=== PATIENT | female | born 1960 | race Caucasian/White ===

== ENCOUNTER 2019-04-25 01:32 | Inpatient (IN) | payer OTHER ==
[~2019-04-25] VITALS: Ht 157.5 cm; Wt 59.9 kg
[2019-04-25] VITALS (12 sets, daily range): BP systolic 103–167; BP diastolic 45–82
--- NOTE | 2019-04-25 01:32 | NUR ---
Patient BIBA ACLS, transferred to bed 11. RN evaluating patient at bedside.
--- NOTE | 2019-04-25 01:45 | NUR ---
58 YO F BIBA FROM HOME. FAMILY CALLED 911 DUE TO PT BEHAVING ABNORMALLY. PER EMS, PT WAS INITALLY C/O HIGH BLOOD SUGAR AND GRADUALLY BECAME MORE ALTERED. PT ARRIVES A/O X 0. UNRESPONSIVE TO QUESTIONS. PT USING FOUL LANGUAGE WITH SLURRED SPEECH. PT SAYING NON-SENSICAL THINGS, MOANING. PT IS UNCOOPERATIVE, THRASHING, KICKING ON GURNEY. PT TRANSFERED TO GURNEY AND BECAME MORE CALM. LARGE DISTENDED ABD NOTED. -- SKIN PINK, WARM, DRY. BREATHING EVEN, UNLABORED. VSS. PMH-- HEP C, ASCITES, DM, CIRHOSSIS
--- NOTE | 2019-04-25 01:50 | NUR ---
# 16 FR straight catheter utilizing sterile technique. Immediate return of 300 ml orange, clear urine noted. Urine sample collected and sent to lab. Pt tolerated procedure well.
--- NOTE | 2019-04-25 02:00 | NUR ---
BOYFRIEND ARRIVED AT BEDSIDE. HE STATES THAT PT LAST NORMAL BEHAVIOR WAS WHEN THEY HAD DINNER AROUND 9 PM. HE STATES PT "TOOK HITS FROM HER NIECE'S [employer] PIPE" AND WENT TO BED. SHE WOKE UP AROUND 2400 C/O THAT HER BLOOD SUGAR WAS HIGH. HE STATES THAT SHE WAS TRYING TO TAKE HER BLOOD SUGAR AND HE NOTICED THAT SHE "WASN'T ACTING RIGHT." HE STATES THAT SHE GRADUALLY BECAME MORE AND MORE ALTERED; RESTLESS, AGITATED, ANXIOUS. HE ALSO REPORTS THAT SHE HAD A PARACENTESIS ON FRIDAY.
--- NOTE | 2019-04-25 02:10 | NUR ---
IV CAME OUT DURING BLOOD DRAW DUE TO PT STRUGGLING AND MOVING.
--- NOTE | 2019-04-25 02:15 | NUR ---
PHLEB DRAWING LABS AT BEDSIDE.
--- NOTE | 2019-04-25 02:19 | NUR ---
EMT PERFORMING EKG AT BEDSIDE.
[2019-04-25 02:33] LABS: APPEARANCE,URINE CLEAR (CLEAR); BILIRUBIN,URINE NEGATIVE (NEGATIVE); BLOOD, URINE NEGATIVE (NEGATIVE); COLOR,URINE YELLOW (YELLOW); LEUKOCYTE ESTERASE ,URINE NEGATIVE (NEGATIVE); NITRITE, URINE NEGATIVE (NEGATIVE); UGLUCOSE 1+ (NEGATIVE)
[2019-04-25 02:33] LABS: HEMATOCRIT 33.1 % (36-48); HEMOGLOBIN 11.4 g/dL (12.0-16.0); MEAN CORPUSCULAR HEMOGLOBIN 35 pg (27-31); MEAN CORPUSCULAR HGB CONC 35 g/dL (33-37); MEAN CORPUSCULAR VOLUME 100.7 fL (80-94); PLATELET COUNT (AUTO) 117 K/uL (140-450); RED BLOOD CELL COUNT(AUTO) 3.29 MIL/uL (4.20-5.40); RED CELL DISTRIBUTION WIDTH 15.2 % (11.6-13.7); WHITE BLOOD COUNT (AUTO) 7.9 K/uL (4.8-10.8)
[2019-04-25 02:43] LABS: LYMPHOCYTES % (MANUAL) 7 % (20-46); MONOCYTES % (MANUAL) 11 % (5-12)
[2019-04-25 02:47] LABS: ANION GAP 23.7 (8-16); CARBON DIOXIDE 16.3 mmol/L (21-32)
[2019-04-25 02:48] LABS: HYALINE CASTS, URINE 0-10 /LPF (None Seen); RBC,URINE 0-5 /HPF (0-5); WBC,URINE 0-5 /HPF (0-5)
[2019-04-25 02:57] LABS: ALBUMIN 2.5 g/dL (3.4-5.0); TOTAL BILIRUBIN 2.8 mg/dL (0.0-1.0)
[2019-04-25] MEDS ORDERED: NACL 0.9% 2,000 ML IV ONE (03:10)
--- NOTE | 2019-04-25 03:50 | NUR ---
Dr. Ortega evaluating patient at bedside.
[2019-04-25] MEDS ORDERED: LORazepam 2 MG/ML VIAL IVP PRN (04:05)
[2019-04-25] MEDS ORDERED: cefTRIAXone 1,000 MG VIAL ONE (04:17)
[2019-04-25] MEDS ORDERED: SODIUM BICARBONATE 8.4% 100 MEQ in DEXT 5% / NACL 0.45% 1,000 ML IV SCH (04:20)
--- NOTE | 2019-04-25 04:45 | NUR ---
Patient will be admitted to care of Dr. Rodriguez. Admited to TELE. Will go to room 110B. Belongings list completed. Report to EKATERINA Queen.
--- NOTE | 2019-04-25 04:45 | NUR ---
RECEIVED BEDSIDE REPORT. PT IS AAOX0. NON RESPONSIVE TO VOICE. PER RN PTS BOYFRIEND STATES PT BECAME ALOC AT 0000. AND WAS OKAY AT 2200. PT VERY LETHARGIC AROUND 0000 AND WAS ADMITTED TO ER IN [place] BUT SOON AFTER PT ASLEEP. SKIN IS INTACT. IV ON L FA 20G CURRENTLY ROCEPHIN INFUSING. PT STILL TO HAVE 2L OF NS BOLUS. WILL ADMINISTER AFTER ROCEPHIN. VS: 111/45 94 97%RA 14 97.7 FLACC 0.MRSA SWAB OBTAINED. SAFETY MEASURES ARE IN PLACE.
[2019-04-25] MEDS ORDERED: FURO-570 PO (04:54)
[2019-04-25] MEDS ORDERED: PANT40EC28 PO ×2 (04:54→05:11)
[2019-04-25] MEDS ORDERED: INSU100S45 SUBQ (04:54)
[2019-04-25] MEDS ORDERED: MIC5 PO (04:54)
[2019-04-25] MEDS ORDERED: SPIR50TA PO (04:54)
--- NOTE | 2019-04-25 05:00 | NUR ---
ELLIOTT CATH INSERTED AT THIS TIME USING STERILE TECHNIQUE. YELLOW URINE RETURN NOTED. ALL SAFETY MEASURES ARE IN PLACE.
[2019-04-25] MEDS ORDERED: METO5TAB4 PO (05:11)
[2019-04-25] MEDS ORDERED: SODIUM BICARBONATE 8.4% PFS 50 MEQ/50 ML SYR IVP ONE (05:44)
[2019-04-25] MEDS ORDERED: LACTULOSE 20 GM/30 ML UDC PO SCH (06:00)
--- NOTE | 2019-04-25 06:10 | NUR ---
NG TUBE INSERTED 16 FR USED. PT TOLERATED WELL. CXR STAT ORDERED. NG TUBE INSERTED FOR MEDICATIONS. PT REMAINS AAO X0.
--- NOTE | 2019-04-25 07:25 | NUR ---
ENDORSED PT IN STABLE CONDITION.
--- NOTE | 2019-04-25 07:26 | NUR ---
RECEIVED REPORT FROM AQUARIUM SPECIALIST NURSE. PATIENT LYING DOWN IN BED, MOANING WITH OCCASIONAL TOSSING AROUND IN BED. DIFFICULT TO AROUSE, OPEN EYES OCCASIONALLY HOWEVER EYES LOOK ROLLED BACK, PUPILS PERRLA ON BOTH EYES. NGTUBE IN PLACE, SKIN INTACT. ELLIOTT CATH IN PLACE DRAINING YELLOW URINE WITH SEDIMENT NOTED. IV SITE INTACT, PATENT, AND INFUSING IVF PER MD ORDERS. SAFETY MEASURES IN PLACE, CALL LIGHT WITHIN REACH. WILL CONTINUE TO MONITOR.
--- NOTE | 2019-04-25 07:40 | NUR ---
PAGED DR. MARQUIS REGARDING INCREASED LACTIC ACID. AWAITING CALL BACK. WILL CONTINUE TO MONITOR.
--- NOTE | 2019-04-25 08:00 | NUR ---
DR. MARQUSI RETURNED CALL AND SAID THAT HE WAS IN [facility] ICU AND WILL COME TO UNIT SOON AND LOOK AT PATIENT. NO FURTHER ORDERS AT THIS TIME. WILL CONTINUE TO MONITOR.
[2019-04-25] MEDS ORDERED: DEXTROSE 50% 50 ML SYR IVP PRN (08:15)
--- NOTE | 2019-04-25 08:15 | NUR ---
DR. MARQUIS AT BEDSIDE ASSESSING PATIENT. PER DR. MARQUIS, PATIENT DOES NOT LOOK WELL AND WILL TRANSFER TO ICU. INFANTRY INDIRECT FIRE CREWMEMBER AND ACADEMIC TUTOR NOTIFIED AND AWARE. WILL CONTINUE TO MONITOR.
[2019-04-25] MEDS: BLOOD GLUCOSE MONITORING 1 DEV DEV FS SCH ×4 (08:22→23:25)
--- NOTE | 2019-04-25 09:09 | NUR ---
PATIENT HAS BEEN SCREENED AND CATEGORIZED HIGH NUTRITION RISK. PATIENT WILL BE SEEN WITHIN 1-2 DAYS OF ADMISSION. 04/26/19-04/27/[address]
--- NOTE | 2019-04-25 09:13 | NUR ---
ABG RESULTS READ BACK TO DR. MARQUIS AND PT IS BEING TRANSFERRED TO [facility] CARLOS ALBERTO GIVEN RESULTS ALSO
[2019-04-25] MEDS: LACTULOSE 20 GM/30 ML UDC PO SCH ×4 (09:26→23:26)
--- NOTE | 2019-04-25 09:27 | NUR ---
PT MOANING, RESTLESS, ATIVAN GIVEN
[2019-04-25] MEDS ORDERED: RIFAXIMIN 550 MG TAB NG SCH (09:30)
--- NOTE | 2019-04-25 09:50 | NUR ---
PATIENT TRANSFERRED TO ICU SAFELY. REPORT GIVEN TO ICU NURSE FOR CONTINUITY OF CARE.
--- NOTE | 2019-04-25 09:50 | NUR ---
TRANSFERRED PT FROM [facility] TO ICU BED 3. PT DOES NOT OPEN EYES, NO RESPONSIVE TO VOICE STIMULI. BEDSIDE MONITOR SHOWS SR 98. ON RA, NO S/S OF RESPIRATORY DISTRESS NOTED. LUNG SOUND CLEAR. PT ABD LARGE AND EXTENDED BUT SOFT TO TOUCH. PT HAS IV TO LEFT FA # 22 AND RIGHT AC # 20 RUNNING D5 1/2 NS WITH SODIUM BICARBONATE 80% AT 100 CC/HR. PT ALSO HAS MITTEN ON BOTH HANDS. F/C IN PLACE WITH ORANGE URINE NOTED. SIDE RAIL UP WITH LOW BED POSITION. HOB ELEVATED 30 DEGREE, WILL CONTINUE TO MONITOR.
--- NOTE | 2019-04-25 10:18 | NUR ---
NG TUBE PLACEMENT CHECKED WITH ANOTHER NURSE RATJANY. IN THE RIGHT PLACE.
--- NOTE | 2019-04-25 11:00 | NUR ---
PT MOANING AND FALL ASLEEP AGAIN.
[2019-04-25] MEDS: INSULIN LISPRO SLIDING SCALE 100 UNITS/ML VIAL SUBQ PRN ×4 (11:48→23:30)
--- NOTE | 2019-04-25 11:55 | NUR ---
GI DOCTOR CALLED IN, UPDATED PT'S LAB WORK AND NO BM. PER DR. SPEARS, ORDER ONE BOTTLE OF MAGNESIUM CITRATE ONE BOTTLE, HE WILL COME OVER TO CHECK PT LATER.
[2019-04-25] MEDS ORDERED: MAGNESIUM CITRATE 300 ML BTL PO SCH (12:00)
--- NOTE | 2019-04-25 14:36 | NUR ---
PT TOOK TO CT ACCOMPANIED WITH TERRI AND RN AT 1415, CAME BACK TO ROOM WITHOUT INCIDENT.
[2019-04-25 15:07] LABS: BARBITURATE, URINE NEG. ng/ml (NEG <=200); BENZODIAZEPINE, URINE NEG. ng/mL (NEG <=200); CANNABINOID, URINE POS. ng/mL (NEG <=50); COCAINE, URINE NEG. ng/mL (NEG <=300); OPIATE, URINE NEG. ng/mL (NEG <=2000); PHENCYCLIDINE SCREEN,URINE NEG. ng/mL (NEG <=25)
--- NOTE | 2019-04-25 15:29 | NUR ---
PT'S SON, SISTER AND BOYFRIEND AT BEDSIDE. PT STILL DOES NOT OPEN EYES. O2 SATS 99% ON RA. ABD STILL LARGE AND SOFT. NO BM YET.
[2019-04-25] MEDS: DEXT 5% /NACL 0.9% 1,000 ML IV SCH (15:39)
--- NOTE | 2019-04-25 16:22 | NUR ---
CALLED DR. MARQUIS REGARDING HOME MEDS RECON. DR. MARQUIS STATED HE WOULD HOLD ALL THE HOME MEDS BUT GIVE PROTONIX 40 MG IV DAILY AND BS CHECK Q4HRS.
[2019-04-25] MEDS: METOCLOPRAMIDE 10 MG/10 ML SYRP UDC GT SCH (16:47)
--- NOTE | 2019-04-25 17:05 | NUR ---
APPLIED SCD TO PT. DR. MARQUIS MADE AWARE PT'S HEART RATE INCREASED FROM 98 TO 105S AND LAB REPORT.
--- NOTE | 2019-04-25 17:19 | NUR ---
CHARGE NURSE CALLED GI DR. SANDHU REGARDING CT ABD/PELVIS REPORT. DR. SANDHU GAVE TUBE FEEDING ORDER TO CHARGE NURSE.
--- NOTE | 2019-04-25 17:30 | NUR ---
TURNED AND REPOSITIONED PT. PT TOLERATED WELL. O2 SATS 98% ON RA. MUMBLING AND DOES NOT OPEN EYES. FAMILY AT BEDSIDE.
--- NOTE | 2019-04-25 18:15 | NUR ---
STARTED TUBE FEEDING AT 10 CC/HR.
--- NOTE | 2019-04-25 19:15 | NUR ---
RECEIVED REPORT FROM AM SHIFT. PT ALTERED UNABLE TO VERBALIZE NEEDS. NO SIGNS OF ACUTE DISTRESS AT THIS TIME. AFEBRILE. MITTENS BILAT. ROOM AIR. EVEN UNLABORED BREATHING. LUNG SOUNDS CTA BILAT. SR-ST ON MONITOR. NO EDEMA NOTED. ABD DISTENDED. BOWEL SOUNDS HYPOACTIVE. NGT TO NARES. ON GLUCERNA 10 ML WITH 30 ML Q 4 H WATER FLUSH. F/C IN PLACE. URINE CLEAR NO SEDIMENT. BED IN LOWEST POSITION. CALL LIGHT WITHIN REACH. WILL CONTINUE TO MONITOR.
[2019-04-25 19:21] LABS: PROTHROMBIN TIME 13.2 secs (10.8-13.4)
[2019-04-25 19:22] LABS: ANION GAP 19.1 (8-16); CARBON DIOXIDE 20.1 mmol/L (21-32); CREATININE 1.6 mg/dL (0.6-1.3); POTASSIUM 3.2 mmol/L (3.5-5.1)
--- NOTE | 2019-04-25 19:45 | NUR ---
MD AT BEDSIDE AT THIS TIME. UPDATED ON PTS CURRENT CONDITION. WILL CONTINUE TO FOLLOW UP ANY ADDITIONAL ORDERS
[2019-04-25] MEDS: RIFAXIMIN 550 MG TAB NG SCH (20:28)
--- NOTE | 2019-04-25 21:24 | NUR ---
K 3.[address] MARQUIS. NEW ORDERS ADMINISTER 40 MEQ KCL AT THIS TIME.
[2019-04-25] MEDS ORDERED: KCL 20 MEQ/WATER INJ PREMIX 200 ML IV ONE ×2 (21:25)
[2019-04-25] MEDS ORDERED: KCL 20 MEQ/WATER INJ PREMIX 200 ML IV SCH (21:45)
--- NOTE | 2019-04-25 22:25 | NUR ---
NO SIGNS OF ACUTE DISTRESS AT THIS TIME. WILL CONTINUE TO MONITOR.
[2019-04-26] VITALS (7 sets, daily range): BP systolic 94–133; BP diastolic 51–83
--- NOTE | 2019-04-26 | NUR ---
WENT TO CHECK ON PT TO GIVE REQUESTED SLEEPING PILL, BUT PT WAS ALREADY SLEEPING. Addendum: 04/27/19 at 0147 by Meka Tirado RN DATE 04/27/19 AT 0000 NOT 04/26/19
--- NOTE | 2019-04-26 01:11 | NUR ---
NO SIGNS OF ACUTE DISTRESS AT THIS TIME.
[2019-04-26] MEDS: DEXT 5% /NACL 0.9% 1,000 ML IV SCH ×2 (01:33→12:01)
--- NOTE | 2019-04-26 02:30 | NUR ---
LARGE WATERING BM AT THIS TIME. PT ON LACTULOSE Q4H. WILL CONTINUE TO MONITOR.
--- NOTE | 2019-04-26 04:00 | NUR ---
LAB AT BEDSIDE AT THIS TIME. WILL CONTINUE TO MONITOR.
[2019-04-26] MEDS: BLOOD GLUCOSE MONITORING 1 DEV DEV FS SCH ×6 (04:35→23:47)
[2019-04-26] MEDS: LACTULOSE 20 GM/30 ML UDC PO SCH ×6 (04:36→23:48)
[2019-04-26] MEDS: INSULIN LISPRO SLIDING SCALE 100 UNITS/ML VIAL SUBQ PRN ×3 (05:16→21:19)
--- NOTE | 2019-04-26 05:40 | NUR ---
PT HAD LARGE WATERY BM AT THIS TIME. PT TURNED AND REPOSITIONED. BED IN LOWEST POSITION. WILL CONTINUE TO MONITOR.
[2019-04-26 06:00] LABS: BASOPHILS % (AUTO) 0.2 % (0.0-2.0); EOSINOPHILS # (AUTO) 0.1 K/uL (0-0.4); EOSINOPHILS % (AUTO) 2.4 % (0.0-4.0); HEMATOCRIT 33.1 % (36-48); HEMOGLOBIN 11.2 g/dL (12.0-16.0); LYMPHOCYTES # (AUTO) 0.9 K/uL (2.5-16.5); LYMPHOCYTES % (AUTO) 15.6 % (20.5-51.1); MEAN CORPUSCULAR HEMOGLOBIN 34 pg (27-31); MEAN CORPUSCULAR HGB CONC 34 g/dL (33-37); MEAN CORPUSCULAR VOLUME 100.9 fL (80-94); MONOCYTES # (AUTO) 0.7 K/uL (0.8-1.0); MONOCYTES % (AUTO) 12.4 % (1.7-9.3); NEUTROPHILS # (AUTO) 4.1 K/uL (1.8-7.7); NEUTROPHILS % (AUTO) 69.4 % (42.2-75.2); PLATELET COUNT (AUTO) 80 K/uL (140-450); RED BLOOD CELL COUNT(AUTO) 3.28 MIL/uL (4.20-5.40); WHITE BLOOD COUNT (AUTO) 5.9 K/uL (4.8-10.8)
[2019-04-26 06:29] LABS: ALBUMIN 2.2 g/dL (3.4-5.0); ANION GAP 16.4 (8-16); CREATININE 1.4 mg/dL (0.6-1.3); MAGNESIUM 2.2 mg/dL (1.8-2.4); PHOSPHORUS 2.1 mg/dL (2.5-4.9); POTASSIUM 4.4 mmol/L (3.5-5.1); TOTAL BILIRUBIN 2.9 mg/dL (0.0-1.0)
--- NOTE | 2019-04-26 07:12 | NUR ---
ENDORSED CARE TO INCOMING SHIFT RN FOR CONTINUITY OF CARE.
--- NOTE | 2019-04-26 07:30 | NUR ---
RECEIVED PT FROM PM NURSE. PT IS MORE AWAKE THAN YESTERDAY BUT STILL UNABLE TO MAKE NEEDS KNOWN. WHEN ASSESSING PATIENT. NO MATTER WHAT QUESTIONS I ASKED, THE ANSWER WAS "Yes". bedside monitor shows sr-ST ( 98s-105S). on RA, no s/s of respiratory distress noted. ng tube in place with Glucerna at 30 CC PER HOUR WITH WATER FLUSH 300 Q 6 HRS. RESIDUAL CHECKED 10CC, RETURNED IT BACK. ABD LARGE AND DISTENDED. F/C IN PLACE WITH LIGHT ORANGE COLOR URINE NOTED. PT HAS IV TO RIGHT AC # 20 AND LEFT FA # 22 RUNNING D5NS AT 100 CC/HR, HOB ELEVATED 30 DEGREES WITH LOW BED POSITION, WILL CONTINUE TO MONITOR.
[2019-04-26] MEDS: METOCLOPRAMIDE 10 MG/10 ML SYRP UDC GT SCH ×3 (07:48→16:36)
--- NOTE | 2019-04-26 08:45 | NUR ---
PT HAD BM, CLEANED PT .
[2019-04-26] MEDS ORDERED: PANTOPRAZOLE 40 MG INJ VIAL IVP SCH (09:00)
--- NOTE | 2019-04-26 09:00 | NUR ---
DR. MARQUIS IN TO CHECK PT. PER DR. MARQUIS, IT IS OK TO TRANSFER TO TELE.
--- NOTE | 2019-04-26 09:30 | NUR ---
MADE AWARE PT ACCIDENTLY PULLED OUT NG TUBE. PER DR. MARQUIS, OK TO ORDER PT CCHO 60G.
[2019-04-26] MEDS: RIFAXIMIN 550 MG TAB NG SCH ×2 (09:43→21:00)
--- NOTE | 2019-04-26 10:30 | NUR ---
SCREEN FOR LOW OSBALDO SCALE AT RISK, CONTINUE TO FOLLOW PRESSURE ULCER PREVENTION INTERVENTIONS. -TURN AND REPOSITION PATIENT Q 2H -ASSESS AND MONITOR SKIN CONDITION DURING POSITION CHANGE -OFFLOAD BILATERAL HEELS BY PLACING PILLOWS UNDER CALVES AT ALL TIMES, UNLESS OTHERWISE CONTRAINDICATED -PRESSURE REDISTRIBUTION BY PLACING PILLOWS AND OFFLOADING SACRALCOCCYX -KEEP SKIN CLEAN AND DRY AT ALL TIMES.
--- NOTE | 2019-04-26 10:45 | NUR ---
PT HAD BM. CLEANED PT. BED CHANGED.
--- NOTE | 2019-04-26 11:10 | NUR ---
TRANSFERRED PT TO TELE 108B. REPORT GIVEN TO CARLOS ALBERTO TOBAR. PT TOLERATED WELL. ALL PERSONAL BELONGINGS WITH PT. PT'S SISTER WITH PT.
--- NOTE | 2019-04-26 11:52 | NUR ---
CONTACTED PATIENT'S PCP DR. JONA POTTER AT [phone]. PDA IS SET UP FOR APR 29, 2019 AT 1530 PM. COPY PROVIDED TO THE PATIENT.
--- NOTE | 2019-04-26 12:20 | NUR ---
SCHEDULED MEDICATIONS DUE GIVEN. WILL CONTINUE TO MONITOR.
[2019-04-26] MEDS ORDERED: ALBUMIN HUMAN 25% 100 ML IV SCH (14:00)
--- NOTE | 2019-04-26 16:42 | NUR ---
PATIENT LYING DOWN IN BED WATCHING TV. NO DISTRESS NOTED. DENIES ANY PAIN. SCHEDULED MEDICATIONS DUE GIVEN. WILL CONTINUE TO MONITOR.
--- NOTE | 2019-04-26 18:00 | NUR ---
PATIENT LYING DOWN IN BED TALKING WITH FAMILY MEMBERS AT BEDSIDE. NO DISTRESS NOTED. DENIES ANY PAIN. WILL CONTINUE TO MONITOR.
--- NOTE | 2019-04-26 19:07 | NUR ---
GAVE REPORT TO WOVEN LABEL DESIGNER NURSE FOR CONTINUITY OF CARE. PATIENT IN STABLE CONDITION.
--- NOTE | 2019-04-26 19:10 | NUR ---
RECEIVED REPORT FROM CARLOS ALBERTO GUSMAN AT BEDSIDE FOR CONTINUITY OF CARE, PT IN STABLE CONDITION.
--- NOTE | 2019-04-26 20:00 | NUR ---
PT IN BED AWAKE AND ALERT AND ORIENTED X 2-3. PT LUNGS CLEAR, BUT ABDOMEN IS DISTENDED AND FIRM. PT HAD 2 BMS RECENTLY DUE TO ADMINISTRATION OF LACTULOSE. SEQUENTIALS IN PLACE FOR DVT PREVENTION. PT HAS 2 IV SITES, LEFT F/A 20G INTACT AND FLUSHED PATENT AND A RAC 20GUAGE INTACT AND FLUSHED PATENT. PT HAS D5 1/2 NS RUNNING AT 5MLS HR TO KVO. V/S FOLLOWS T 97.9 P 104 R 18 B/P 126/51 02 96% ON ROOM AIR. ALL FALLS PRECAUTIONS IN PLACE AND AND AL REQUESTED NEEDS ATTENDED AND CALL FELDER IN REACH.
--- NOTE | 2019-04-26 21:00 | NUR ---
PT IN BED , SHE WAS TUNED AND CHANGED, PT HAD ANOTHER LOOSE BM.PT GIVEN DUE MEDS OF LACTULOSE AND RIFAXIMIN. PT BLOOD GLUCOSE IS 260, PT GIVEN 6 UNITS HUMALOG PER S/S. ALL REQUESTED NEEDS ATTENDED AND ALL FALLS PRECAUTIONS IN PLACE.
--- NOTE | 2019-04-26 22:45 | NUR ---
PT REQUESTED SLEEPING PILL FOR INSOMNIA., PAGED [facility] [employer], DR. HANNON RENAL SOCIAL WORKER.
--- NOTE | 2019-04-26 23:00 | NUR ---
PT C/O OF LEFT F/A IV SITE HURTS HER, REMOVED PER PT REQUEST, IV FLUIDS PLACE ON RAC IV SITE . PT RUNNING D51/2 NS AT 5MLS/HR TO KVO.
--- NOTE | 2019-04-26 23:30 | NUR ---
PT IN BED, SHE REFUSED HER ORDERED LACTULOSE , FINGERSTICK IS 107, NO HUMALOG COVERAGE NEEDED. V/S FOLLOWS T 98.4 P 101 R 18 B/P 117/66 02 100% ON ROOM AIR. ALL REQUESTED NEEDS ATTENDED AND CALL FELDER IN REACH.
--- NOTE | 2019-04-26 23:35 | NUR ---
NEW ORDER FOR RESTORIL 15MG PO/PRN AT HS FOR INSOMNIA RECEIVED BY DR. HANNON.
[2019-04-27] VITALS: BP 117/66
--- NOTE | 2019-04-27 | NUR ---
WENT TO GIVEN PT PRN RESTORIL FOR INSOMNIA , BUT PT WAS SLEEPING.
[2019-04-27] MEDS ORDERED: TEMAZEPAM 15 MG CAP PO PRN ×2 (00:15→12:45)
[2019-04-27 04:00] VITALS: BP 128/75
[2019-04-27] MEDS: BLOOD GLUCOSE MONITORING 1 DEV DEV FS SCH ×4 (04:00→16:00)
[2019-04-27] MEDS: LACTULOSE 20 GM/30 ML UDC PO SCH ×3 (04:00→12:04)
--- NOTE | 2019-04-27 04:00 | NUR ---
PT REFUSED LACTULOSE FINGERSTICK IS 134, NO COVERAGE NEEDED. PT IN BED AOX3 ALL FALLS PRECAUTIONS IN PLACE, NO C/O VOICED AT THIS TIME.
[2019-04-27] MEDS: METOCLOPRAMIDE 10 MG/10 ML SYRP UDC GT SCH ×2 (06:29→11:20)
--- NOTE | 2019-04-27 06:30 | NUR ---
FINGERSTICK IS 164, PT RECEIVED 2 UNITS OF HUMALOG COVERAGE.
[2019-04-27] MEDS: INSULIN LISPRO SLIDING SCALE 100 UNITS/ML VIAL SUBQ PRN ×3 (06:35→17:17)
--- NOTE | 2019-04-27 07:25 | NUR ---
RECEIVED BEDSIDE REPORT FROM SENIOR NETWORK SYSTEMS ENGINEER NURSE FOR CONTINUITY OF CARE. PATIENT AWAKE AND RESTING ON BED AT THIS TIME. PATIENT IS AAOX3, TO NAME, PLACE AND TIME. PATIENT IS ABLE TO FOLLOW SIMPLE COMMANDS AND MAKE NEEDS KNOWN. RESPIRATION EVEN AND UNLABORED ON RA. DENIED PAIN AND SOB. NO SIGNS OF DISTRESS NOTED. IV ON RAC 20G, CLEAN AND INTACT, SL. SKIN CLEAN AND INTACT, NO WOUND. PATIENT IS INCONTINENT, AND ELLIOTT IN PLACE AND DRAINING YELLOW URINE WITH GRAVITY. DISCUSSED PLAN OF CARE WITH PATIENT AND PATIENT SAID OK. SAFETY MEASURES IN PLACE. BED ALARM ACTIVATED. BED IN LOW POSITION AND CALL LIGHT WITHIN REACH. INSTRUCTED PATIENT TO USE THE CALL LIGHT FOR ANY ASSISTANCE AND PATIENT SAID OK.
[2019-04-27 07:34] LABS: ALBUMIN 2.6 g/dL (3.4-5.0); ANION GAP 12.9 (8-16); CARBON DIOXIDE 23.7 mmol/L (21-32); CREATININE 1.2 mg/dL (0.6-1.3); POTASSIUM 3.6 mmol/L (3.5-5.1); TOTAL BILIRUBIN 2.6 mg/dL (0.0-1.0)
--- NOTE | 2019-04-27 07:42 | NUR ---
PATIENT REQUESTED TO REMOVE THE COMPRESSION SOCKS FROM HER LEGS AND STATED "CAN YOU TAKE THEM OFF FOR NOW? I DON'T FEEL COMFORTABLE TO HAVE THEM ON." EDUCATED PATIENT ABOUT COMPRESSION SOCKS AND HOW IT WORKS. PATIENT STATED " YES, I KNOW, BUT I WANT TO TAKE THEM OFF NOW." REMOVED PER REQUEST. PATIENT AWAKE AND RESTING ONM BED AT THIS TIME. NO SIGNS OF DISTRESS NOTED. SAFETY MEASURES IN PLACE. BED ALARM ACTIVATED. BED IN LOW POSITION AND CALL LIGHT WITHIN REACH. INSTRUCTED PATIENT TO USE THE CALL LIGHT FOR ANY ASSISTANCE AND PATIENT WAS AWARE.
[2019-04-27 08:00] VITALS: BP 114/60
[2019-04-27] MEDS: RIFAXIMIN 550 MG TAB NG SCH (08:19)
--- NOTE | 2019-04-27 08:20 | NUR ---
ADMINISTERED MEDS PER MD ORDER, PATIENT TOLERATED WELL. MEDS EDUCATION PROVIDED TO PATIENT AND ANSWERED ALL PATIENT'S QUESTION, PATIENT VERBALIZED UNDERSTANDING. PATIENT AWAKE AND RESTING ON BED AT THIS TIME. NO SIGNS OF DISTRESS NOTED. TELE MONITOR ATTACHED. SAFETY MEASURES IN PLACE. BED IN LOW POSITION AND CALL LIGHT WITHIN REACH. INSTRUCTED PATIENT TO USE THE CALL LIGHT FOR ANY ASSISTANCE AND PATIENT SAID OK.
[2019-04-27 09:11] LABS: HEMOGLOBIN 9.1 g/dL (12.0-16.0); MEAN CORPUSCULAR HEMOGLOBIN 35 pg (27-31); MONOCYTES # (AUTO) 0.7 K/uL (0.8-1.0); RED BLOOD CELL COUNT(AUTO) 2.57 MIL/uL (4.20-5.40)
[2019-04-27 09:13] LABS: BASOPHILS % (AUTO) 0.7 % (0.0-2.0); EOSINOPHILS # (AUTO) 0.3 K/uL (0-0.4); EOSINOPHILS % (AUTO) 5.4 % (0.0-4.0); HEMATOCRIT 26.2 % (36-48); LYMPHOCYTES # (AUTO) 1.4 K/uL (2.5-16.5); LYMPHOCYTES % (AUTO) 25.6 % (20.5-51.1); MEAN CORPUSCULAR HGB CONC 35 g/dL (33-37); MEAN CORPUSCULAR VOLUME 101.7 fL (80-94); MONOCYTES % (AUTO) 13.7 % (1.7-9.3); NEUTROPHILS % (AUTO) 54.6 % (42.2-75.2); PLATELET COUNT (AUTO) 70 K/uL (140-450); RED CELL DISTRIBUTION WIDTH 15.8 % (11.6-13.7); WHITE BLOOD COUNT (AUTO) 5.5 K/uL (4.8-10.8)
--- NOTE | 2019-04-27 09:25 | NUR ---
PATIENT AWAKE AND TALKING TO BOYFRIEND CELINE BY BEDSIDE. NO SIGNS OF DISTRESS NOTED. TELE MONITOR ATTACHED. SAFETY MEASURES IN PLACE. BED IN LOW POSITION AND CALL LIGHT WITHIN REACH. BED ALARM ACTIVATED.
--- NOTE | 2019-04-27 10:10 | NUR ---
PATIENT IS PARTICIPATING IN PHYSICAL THERAPY SESSION AT THIS TIME WITH SREE FRANZ. NO SIGNS OF DISTRESS NOTED.
--- NOTE | 2019-04-27 11:20 | NUR ---
PATIENT COMPLAINED SHE FEELS NAUSEA AFTER PHYSICAL THERAPY, ADMINISTERED SCHEDULED MED REGLAN, MED EDUCATION PROVIDED TO PATIENT AND PATIENT VERBALIZED UNDERSTANDING. PATIENT AWAKE AND WATCHING TV ON BED AT THIS TIME. NO SIGN OF DISTRESS NOTED. SAFETY MEASURES IN PLACE. BED IN LOW POSITION AND CALL LIGHT WITHIN REACH. BED ALARM ACTIVATED. INSTRUCTED PATIENT TO USE THE CALL LIGHT FOR ANY ASSISTANCE AND PATIENT SAID OK.
[2019-04-27 12:00] VITALS: BP 128/55
--- NOTE | 2019-04-27 12:07 | NUR ---
ADMINISTERED MED PER MD ORDER, PATIENT TOLERATED WELL. MED EDUCATION PROVIDED TO PATIENT AND PATIENT VERBALIZED UNDERSTANDING. PATIENT IS AWAKE AND TALKING TO SISTER ANGELA AT BEDSIDE. NO SIGNS OF DISTRESS NOTED. SAFETY MEASURES IN PLACE. BED IN LOW POSITION AND CALL LIGHT WITHIN REACH. BED ALAR, ACTIVATED. INSTRUCTED PATIENT TO USE THE CALL LIGHT FOR ANY ASSISTANCE AND PATIENT WAS AWARE.
--- NOTE | 2019-04-27 13:21 | NUR ---
PATIENT AWAKE AND TALKING TO SISTER JENNIFER AND VISITORS AT BEDSIDE. NO SIGNS OF DISTRESS NOTED. SAFETY MEASURES IN PLACE. BED IN LOW POSITION AND CALL LIGHT WITHIN REACH. BED ALARM ACTIVATED. INSTRUCTED PATIENT TO USE THE CALL LIGHT FOR ANY ASSISTANCE AND PATIENT VERBALIZED OK.
--- NOTE | 2019-04-27 13:45 | NUR ---
DC ELLIOTT CATHETER PER MD ORDER, PATIENT TOLERATED WELL. NO SIGNS OF DISTRESS NOTED. PATIENT AWAKE AND TALKING TO SISTER JENNIFER AND VISITORS BY BEDSIDE. TELE MONITOR ATTACHED. SAFETY MEASURES IN PLACE. BED IN LOW POSITION AND CALL LIGHT WITHIN REACH. INSTRUCTED PATIENT TO USE THE CALL LIGHT FOR ANY ASSISTANCE AND PATIENT SAID OK.
--- NOTE | 2019-04-27 15:12 | NUR ---
PATIENT IS NAPPING ON BED AT THIS TIME. EVEN AND UNLABORED CHEST RISES IN RA NOTED. NO SIGNS OF DISTRESS NOTED. SAFETY MEASURES IN PLACE. BED IN LOW POSITION AND CALL LIGHT WITHIN REACH. BED ALARM ACTIVATED.
--- NOTE | 2019-04-27 15:50 | NUR ---
04/27/19 RD INITIAL ASSESSMENT COMPLETED PLEASE REFER TO NUTRITION ASSESSMENT UNDER CARE ACTIVITY FOR ESTIMATED NUTRITIONAL NEEDS. 1. CONTINUE CCHO 60 GM DIET TOLERATED 2. RECOMMEND GLUCERNA BID 3. SNACKS WILL BE PROVIDED 4. RD TO FOLLOW-UP 3-5 DAYS, MODERATE RISK CHRIS JIMENEZ, RD
[2019-04-27] MEDS ORDERED: LACT10SO1 PO (15:54)
[2019-04-27 16:00] VITALS: BP 108/61
--- NOTE | 2019-04-27 16:00 | NUR ---
INFORMED PATIENT THAT SHE WILL BE DISCHARGE FROM THE HOSPITAL TODAY. PER PATIENT, SHE WILL CALL HER FAMILY/BOYFRIEND TO FIND OUT WHEN THEY WILL BE ABLE TO PICK HER UP FROM THE HOSPITAL. NO SIGNS OF DISTRESS NOTED. SAFETY MEASURES IN PLACE. BED IN LOW POSITION AND CALL LIGHT WITHIN REACH.
--- NOTE | 2019-04-27 16:20 | NUR ---
PATIENT SAID "MY BOYFRIEND WILL BE ABLE TO PICK ME UP AFTER DINNER LIKE AROUND 6PM." INFORMED PATIENT THAT DISCHARGE DOCUMENT WILL BE PREPARED AND READY BY THAT TIME. PATIENT SAID "OK." PATIENT IS AWAKE AND RESTING ON BED AT THIS TIME. NO SIGNS OF DISTRESS NOTES. SAFETY MEASURES IN PLACE. BED IN LOW POSITION AND CALL LIGHT WITHIN REACH. INSTRUCTED PATIENT TO USE THE CALL LIGHT FOR ANY ASSISTANCE AND PATIENT WAS AWARE.
--- NOTE | 2019-04-27 16:48 | NUR ---
PAGED DR MARQUIS TO VERIFY PATIENT'S DISCHARGE DEPOSITION AND PROVIDED PATIENT'S PREFERRED PHARMACY FOR MEDICATION EQUIPMENT SALES SPECIALIST.
--- NOTE | 2019-04-27 16:52 | NUR ---
RECEIVED A CALL BACK FROM DR MARQUIS. PER DR MARQUIS, CORRECTED THE DISCHARGE DEPOSITION AND PROVIDED PATIENT'S PREFERRED PHARMACY INFORMATION TO DR MARQUIS [facility] [address] [place] [phone] MARQUIS, HE WILL PHONE IN THE PHARMACY FOR THE PRESCRIPTION.
[2019-04-27] MEDS ORDERED: LACTULOSE 20 GM/30 ML UDC PO SCH (17:00)
--- NOTE | 2019-04-27 17:17 | NUR ---
ADMINISTERED MEDS PER MD ORDER, PATIENT TOLERATED WELL. PATIENT AWAKE AND TALKING TO VISITOR ANDREW AT BEDSIDE. NO SIGNS OF DISTRESS NOTED. TELE MONITOR ATTACHED. SAFETY MEASURES IN PLACE. BED IN LOW POSITION AND CALL LIGHT WITHIN REACH. INSTRUCTED PATIENT TO USE THE CALL LIGHT FOR ANY ASSISTANCE AND PATIENT WAS AWARE.
--- NOTE | 2019-04-27 18:00 | NUR ---
PATIENT IS SITTING UP AND EATING DINNER ON BED AT THIS TIME. NO SIGNS OF DISTRESS NOTED. BOYFRIEND CELINE BY BEDSIDE. PER PATIENT, SHE WILL FINISH HER DINNER AND THEN CHANGE INTO HER OWN CLOTHES. SAFETY MEASURES IN PLACE. BED IN LOW POSITION AND CALL LIGHT WITHIN REACH. TELE MONITOR ATTACHED.
--- NOTE | 2019-04-27 18:20 | NUR ---
PATIENT IS STILL EATING DINNER AT THIS TIME. BOYFRIEND CELINE BY BEDSIDE. NO SIGNS OF DISTRESS NOTED. TELE MONITOR ATTACHED. SAFETY MEASURES IN PLACE. BED IN LOW POSITION AND CALL LIGHT WITHIN REACH.
--- NOTE | 2019-04-27 18:35 | NUR ---
PATIENT IS CHANGING INTO HER OWN CLOTHES AT THIS TIME. BOYFRIEND CELINE AT BEDSIDE. NO SIGNS OF DISTRESS NOTED. REMOVED TELE MONITOR AND RETURNED TO TELE INTERFACE DESIGNER.
--- NOTE | 2019-04-27 18:48 | NUR ---
DISCHARGE INSTRUCTION PROVIDED TO PATIENT AT BEDSIDE. EDUCATED PATIENT ON FOLLOW UP WITH MD, SEEK MEDICAL HELP IN CASE OF MEDICAL EMERGENCY, MEDICATIONS REGIMEN, SIDE EFFECTS, DISEASE MANAGEMENT, AND DIET. ANSWERED ALL PATIENT'S QUESTIONS AND PATIENT VERBALIZED UNDERSTANDING. REMOVED ALL ARM BANDS AND DC IV. IV CANNULA INTACT, NO BLEEDING AT IV SITE. PATIENT CHANGED INTO HER OWN CLOTHES. PATIENT CHECKED ALL THE CABINETS AND TOOK ALL HER BELONGINGS. RANGE FEEDER ESCORTED PATIENT TO THE FRONT LOBBY WITH WHEELCHAIR. PATIENT IS GOING TO DISCHARGE AT THIS TIME ACCOMPANIED BY BOYFRIENLatrell BERGER. AND PATIENT IS IN STABLE CONDITION.
== END 2019-04-27 18:48 | disposition home or self-care (01) | DRG 720 ==
LOC: MED 01:32 → MTU 04:17 → MIC 09:44 → MTU 04-26 11:10
PROVIDERS: ADMIT Internal Medicine; ATTEND Internal Medicine
DX: A41.9 Sepsis, unspecified organism (principal); N17.0 Acute kidney failure with tubular necrosis; E87.2 Acidosis; J18.9 Pneumonia, unspecified organism; K74.60 Unspecified cirrhosis of liver; K72.90 Hepatic failure, unspecified without coma; E44.0 Moderate protein-calorie malnutrition; E87.1 Hypo-osmolality and hyponatremia; K75.4 Autoimmune hepatitis; E11.9 Type 2 diabetes mellitus without complications; Z68.24 Body mass index [BMI] 24.0-24.9, adult; E86.1 Hypovolemia; E86.0 Dehydration
CPT/HCPCS: 36415; 36600; 71045; 76770; 80048; 80053; 80305; 81001; 82140; 82803; 82948; 83605; 83735; 83880; 84100; 84300; 84484; 85025; 85610; 85730; 87040; 87081; 87086; 93005; 97110; 97116; 97161-GP; 97530; 99285; C9113; J0696; J1815; J2060; J3480; J3490; J7030; J7042; J7060; J8597; P9046; Q0092

== ENCOUNTER 2019-05-08 23:14 | Inpatient (IN) | payer OTHER ==
[~2019-05-08] VITALS: Ht 167.6 cm; Wt 61.7 kg
[~2019-05-08 23:14] MED LIST: FURO-570 PO; INSU100S45 SUBQ; LACT10SO1 PO; METO5TAB4 PO; MIC5 PO; PANT40EC28 PO; SPIR50TA PO
[2019-05-08 23:15] VITALS: BP 124/53
--- NOTE | 2019-05-08 23:15 | NUR ---
PT BIBA FO ALTERED LEVEL OF CONSCIOUSNESS. GCS 11. RESPONDS TO VOICE, MILD WEAKNESS, AND CONFUSION. PERRL 3MM. PT HAS 22 GAUGE IN LEFT HAND ESTABLISHED ON SCENE. PT HAD PARACENTISIS 05/07/19. ALLERGIES: ONDANSETRON. MED HX: UNKNOWN. SAFETY MEASURES IN PLACE, BED IN LOWEST POSITION, HOB ELEVATED AND BED RAILS UP X2. ERMD MADE AWARE OF PT STATUS.
--- NOTE | 2019-05-08 23:15 | NUR ---
PT BIBA ALS TO ER BED 10
--- NOTE | 2019-05-08 23:34 | NUR ---
ERMD AT BEDSIDE
[2019-05-08 23:51] LABS: BASOPHILS % (AUTO) 0.2 % (0.0-2.0); EOSINOPHILS # (AUTO) 0.1 K/uL (0-0.4); EOSINOPHILS % (AUTO) 0.8 % (0.0-4.0); HEMATOCRIT 30.4 % (36-48); HEMOGLOBIN 10.3 g/dL (12.0-16.0); LYMPHOCYTES % (AUTO) 8.9 % (20.5-51.1); MEAN CORPUSCULAR HEMOGLOBIN 35 pg (27-31); MEAN CORPUSCULAR HGB CONC 34 g/dL (33-37); MEAN CORPUSCULAR VOLUME 102.4 fL (80-94); MONOCYTES # (AUTO) 1.1 K/uL (0.8-1.0); MONOCYTES % (AUTO) 9.4 % (1.7-9.3); NEUTROPHILS # (AUTO) 9.2 K/uL (1.8-7.7); PLATELET COUNT (AUTO) 131 K/uL (140-450); RED BLOOD CELL COUNT(AUTO) 2.97 MIL/uL (4.20-5.40); RED CELL DISTRIBUTION WIDTH 15.9 % (11.6-13.7); WHITE BLOOD COUNT (AUTO) 11.4 K/uL (4.8-10.8)
[2019-05-08 23:55] LABS: CARBON DIOXIDE 18.6 mmol/L (21-32); CREATININE 2.8 mg/dL (0.6-1.3); POTASSIUM 4.6 mmol/L (3.5-5.1)
--- NOTE | 2019-05-08 23:59 | NUR ---
[facility]
[2019-05-09] VITALS (75 sets, daily range): BP systolic 85–141; BP diastolic 42–76
[2019-05-09 00:04] LABS: PROTHROMBIN TIME 12.9 secs (10.8-13.4)
[2019-05-09] MEDS ORDERED: PIPERACILLIN/TAZOBACTAM 3.375 GM in DEXTROSE 5% 50 ML IV ONE (00:05)
[2019-05-09] MEDS ORDERED: VANCOMYCIN 1,000 MG in DEXTROSE 5% 250 ML IV ONE (00:05)
[2019-05-09 00:06] LABS: ACETONE, SERUM NEGATIVE (NEGATIVE)
[2019-05-09] MEDS ORDERED: PIPERACILLIN/TAZOBACTAM 3.375 GM VIAL IV ONE (00:08)
[2019-05-09] MEDS ORDERED: VANCOMYCIN 1,000 MG VIAL ONE (00:08)
[2019-05-09 00:10] LABS: ALBUMIN 2.6 g/dL (3.4-5.0); THYROID STIMULATING HORMONE 2.71 uIU/mL (0.34-3.74); TOTAL BILIRUBIN 2.7 mg/dL (0.0-1.0)
[2019-05-09] MEDS ORDERED: NACL 3% 100 ML IV ONE ×3 (00:15→04:45)
[2019-05-09 00:19] LABS: ACETAMINOPHEN < 0.5 ug/ml (10-30); SALICYLATE < 2.8 mg/dL (2.8-20.0)
[2019-05-09 00:27] LABS: NEUTROPHILS % (AUTO) 80.7 % (42.2-75.2)
[2019-05-09] MEDS ORDERED: LACTULOSE 20 GM/30 ML UDC PO ONE (00:45)
[2019-05-09] MEDS ORDERED: NACL 0.9% 2,000 ML IV ONE (00:50)
--- NOTE | 2019-05-09 00:54 | NUR ---
CALLED BI FROM [facility], NOTIFIED THAT ERMD WANTS TO ADMINISTER LACTULOSE DUE TO ELEVATED AMMONIA LEVEL AND ERMD CONCERNED ABOUT POSSIBILITY OF RUPTURED ESOPHAGEAL VARICES IF NG TUBE INSERTION IS ATTEMPTED. PER PHARMACIST, MIX 300ML LACTULOSE WITH 600ML WATER/NS, ADMINISTER RECTALLY WITH RECTAL BALLOON CATH, AND HAVE PT RETAIN FOR 30-60MINS. DR PEREZ MADE AWARE, PER ERMD, OK TO PLACE VERBAL ORDER. CALLED AGRONOMY INSTRUCTOR, NO RECTAL BALLOON CATH AVAILABLE. PER ER MD, OK TO ADMINISTER WITH ELLIOTT CATH.
[2019-05-09] MEDS ORDERED: LACTULOSE 20 GM/30 ML UDC PR ONE (01:05)
[2019-05-09 01:09] LABS: APPEARANCE,URINE HAZY (CLEAR); BILIRUBIN,URINE NEGATIVE (NEGATIVE); BLOOD, URINE NEGATIVE (NEGATIVE); COLOR,URINE YELLOW (YELLOW); LEUKOCYTE ESTERASE ,URINE NEGATIVE (NEGATIVE); NITRITE, URINE NEGATIVE (NEGATIVE); UGLUCOSE NEGATIVE (NEGATIVE)
[2019-05-09] MEDS ORDERED: LACTULOSE 20 GM/30 ML UDC ONE ×2 (01:12→01:23)
[2019-05-09] MEDS ORDERED: SODIUM POLYSTYRENE 15 GM/60 ML UDBTL ONE ×2 (01:17→01:18)
[2019-05-09 01:18] LABS: BARBITURATE, URINE NEG. ng/ml (NEG <=200); BENZODIAZEPINE, URINE NEG. ng/mL (NEG <=200); CANNABINOID, URINE POS. ng/mL (NEG <=50); COCAINE, URINE NEG. ng/mL (NEG <=300); OPIATE, URINE NEG. ng/mL (NEG <=2000); PHENCYCLIDINE SCREEN,URINE NEG. ng/mL (NEG <=25); RBC,URINE 0-5 /HPF (0-5); WBC,URINE 0-5 /HPF (0-5); YEAST,URINE Few /HPF (None Seen)
--- NOTE | 2019-05-09 01:33 | NUR ---
PT FAMILY MEMBER STATED THAT PT WAS IN [place] YESTERDAY AND HAD A PARACENTESIS. PT GOT 6 L REMOVED. PT ALSO WAS AT [facility] AND HAD 1 LITER REMOVED. ERMD MADE AWARE OF STATUS.
--- NOTE | 2019-05-09 02:00 | NUR ---
ABLE TO ADMINISTER 60ML LACTULOSE RECTALLY WITH 250ML NS AT THIS TIME USING RECTAL TUBE, HELD FOR 30MINS, WILL ENDORSED TO CONTINUING RN TO CONTINUE ADMINISTRATION OF MED.
[2019-05-09] MEDS ORDERED: KETAMINE 500 MG/5 ML VIAL ONE (02:19)
--- NOTE | 2019-05-09 02:25 | NUR ---
XRAY AT BEDSIDE
--- NOTE | 2019-05-09 02:25 | NUR ---
DR PEREZ, RT TECHS, RIVET HEATER GAS AND MYSELF AT BEDSIDE, FOR EMERGENT INTUBATION. SUCCESSFUL INTUBATION WITH NO COMPLICATIONS, VSS THROUGHOUT PROCEDURE.
[2019-05-09] MEDS ORDERED: levETIRAcetam 1,000 MG in NACL 0.9% 100 ML IV ONE (02:30)
--- NOTE | 2019-05-09 02:40 | NUR ---
ET TUBE IS 22 AT THE LIP
--- NOTE | 2019-05-09 02:40 | NUR ---
RT AT BEDSIDE. AC TIDAL VOLUME 350 PEEP 5. RATE 15 FIO2 40%
--- NOTE | 2019-05-09 02:45 | NUR ---
TIDAL VOLUME SET TO 400 AND FIO2 50%
[2019-05-09] MEDS ORDERED: levETIRAcetam 100 MG/ML VIAL IV ONE (02:49)
--- NOTE | 2019-05-09 03:00 | NUR ---
PT ON VENTILATOR. VSS ON VENTILATOR SETTINGS. REPOSITION TO LEFT SIDE FOR COMFORT. WILL CONTINUE TO MONITOR.
--- NOTE | 2019-05-09 04:00 | NUR ---
PT RESTING IN BED. VSS ON MECHANICAL VENTILATOR. WILL CONTINUE TO MONITOR.
[2019-05-09] MEDS ORDERED: ONDANSETRON 4 MG/2 ML VIAL IVP PRN (04:30)
[2019-05-09] MEDS ORDERED: LORazepam 2 MG/ML VIAL IVP PRN (04:30)
[2019-05-09] MEDS ORDERED: ACETAMINOPHEN 325 MG TAB PO PRN (04:30)
[2019-05-09] MEDS ORDERED: MORPHINE SULFATE 4 MG/ML SYR IVP PRN (04:30)
--- NOTE | 2019-05-09 04:30 | NUR ---
RT AT BEDSIDE
[2019-05-09] MEDS ORDERED: DEXTROSE 50% 50 ML SYR IVP PRN (04:35)
[2019-05-09] MEDS ORDERED: ROCURONIUM 50 MG/5 ML VIAL IV ONE (04:45)
[2019-05-09] MEDS ORDERED: KETAMINE 10 MG/ML UD SYR **ER IVP ONE (04:45)
--- NOTE | 2019-05-09 04:50 | NUR ---
ADMITTED FROM ER THIS 58 YEAR OLD FEMALE PATIENT DUE TO ALOC; PLACED IN ICU BED 5. CARDIACSCOPE SHOWS ON SINUS RHYTHM HR 93/MIN NO ARRHYTHMIAS SEEN. PATIENT IS OBTUNDED, PUPILS 4 MM BRISKLY REACTIVE TO LIGHT; ORALLY INTUBATED AND VENTILATED AT 30% FIO2. ABDOMEN SOFT BUT DISTENDED AND NOTED WITH SLIGHT OOZING ON BOTH SIDES OF THE ABDOMEN DUE TO PREVIOUS PARACENTESIS DONE TO HER BY [facility] REPORTED BY THE ER NURSE BRENNAN. SALINE LOCK G 20 ON RIGHT HAND AND ANOTHER G20 ON LEFT ARM; BOTH PATENT AND INTACT.
--- NOTE | 2019-05-09 05:00 | NUR ---
Transfer of care and report given to EKATERINA Ragland
--- NOTE | 2019-05-09 05:00 | NUR ---
Patient will be admitted to care of Dr. Rincon. Admited to ICU. Will go to room 5. VSS. Belongings list completed. Report to EKATERINA Ragland.
[2019-05-09] MEDS: NACL 0.9% 1,000 ML IV SCH ×2 (05:30→17:25)
--- NOTE | 2019-05-09 05:30 | NUR ---
RECTAL TUBE IN PLACED AND NOTED WITH YELLOWISH GASTRIC OUTPUT; INTACT
[2019-05-09] MEDS ORDERED: cefTRIAXone 1,000 MG VIAL ONE (05:32)
[2019-05-09] MEDS: BLOOD GLUCOSE MONITORING 1 DEV DEV FS SCH ×3 (06:00→17:25)
--- NOTE | 2019-05-09 06:24 | NUR ---
rec'd pt on carescape vent settings ac15 vt 400 peep 5 fio2 30% alarms on and audible and ambu bag at side of vent and vent is plugged into red outlet, no hhn given no signs of distress noted at this time, b\s are clear bilaterally, sxn pt small amt of clear secretions pt is orally intubated with 7.5 et tube secured with anchor fast at 21cm at midline and skin integrity is intact pt is resting
--- NOTE | 2019-05-09 06:30 | NUR ---
[facility] SCREENING SPECIMEN SENT TO LAB.
[2019-05-09] MEDS: INSULIN LISPRO SLIDING SCALE 100 UNITS/ML VIAL SUBQ PRN ×2 (07:05→11:32)
--- NOTE | 2019-05-09 07:13 | NUR ---
RECEIVED BEDSIDE REPORT FROM INFORMATION ENGINEER RN, DILSHAD, FOR CONTINUITY OF CARE. PATIENT IS LETHARGIC, OPENS EYES SPONTANEOUSLY WITH NO PURPOSEFUL MOVEMENT, UNABLE TO FOLLOW COMMANDS OR MAKE NEEDS KNOWN, GCS 6. SKIN IS WARM, DRY, INTACT, SHE HAS PERIPHERAL IV SITE TO R. HAND, 20 G AND L FA 20G, BOTH ASYMPTOMATIC AND PATENT. SHE HAS ETT TO VENT, SETTINGS ARE AC MODE, FIO2 30, TV 400, RATE 15, PEEP 5, BREATHING IS EVEN AND UNLABORED. BREATH SOUNDS ARE CLEAR AND DIMINISHED IN LOWER LOBES. SHE IS SR ON MONITOR, FLACC 0. SHE HAS NGT TO R. NARES, ABDOMEN DISTENDED. PATIENT HAS ELLIOTT CATHETER IN PLACE TO CLEAR YELLOW URINE. SCDS IN PLACE. HOB IS 35 DEGREES, SIDE RAILS UP 3X, BED LOCKED IN LOW POSITION. SAFETY ALARMS AND PRECAUTIONS ASSESSED AND ENFORCED. NO SIGNS OF DISTRESS AT THIS TIME. WILL CONTINUE TO MONITOR.
[2019-05-09] MEDS: LACTULOSE 20 GM/30 ML UDC NG SCH ×3 (07:25→17:25)
--- NOTE | 2019-05-09 07:30 | NUR ---
ENDORSED TO AM SHIFT EKATERINA PADILLA FOR CONTINUITY OF CARE.
[2019-05-09] MEDS: PROPOFOL 1000 MG/100 ML PREMIX 100 ML IV PRN (08:00)
--- NOTE | 2019-05-09 08:00 | NUR ---
PATIENT'S RESPIRATIONS ARE IN THE 30S, STARTED PROPOFOL DRIP AT 5MCG/KG/MIN, PATIENT'S DRY WEIGHT IS 61.6. PATIENT'S RASS IS -2.
--- NOTE | 2019-05-09 08:40 | NUR ---
DR. JIMÉNEZ IS HERE TO SEE PATIENT, UPDATED ON PATIENT'S CONDITION. STATES TO KEEP INTUBATION FOR TODAY AND WE WILL TRY WAKING HER UP TOMORROW.
--- NOTE | 2019-05-09 08:45 | NUR ---
PER DR. JIMÉNEZ, START PATIENT ON GLUCERNA 4ML/HR TUBE FEEDING. Addendum: 05/09/19 at 1041 by Jerry Guerrero RN 40ML/HR
[2019-05-09] MEDS ORDERED: METOCLOPRAMIDE 10 MG/2 ML INJ VIAL IVP PRN ×3 (09:00)
[2019-05-09] MEDS ORDERED: PANTOPRAZOLE 40 MG INJ VIAL IVP SCH (09:00)
[2019-05-09] MEDS: PANTOPRAZOLE 40 MG INJ VIAL IVP SCH (09:53)
--- NOTE | 2019-05-09 11:04 | NUR ---
PATIENT'S SISTER AND BOYFRIEND ARE HERE AT BEDSIDE, UPDATED ON PATIENT'S CONDITION.
--- NOTE | 2019-05-09 11:50 | NUR ---
PATIENT BS IS 157, ADMINISTERED HUMALOG SQ 2 UNITS. PATIENT TOLERATED WELL.
--- NOTE | 2019-05-09 13:18 | NUR ---
SPOKE WITH PATIENT'S SON SEBLE, WHO IS NEXT OF KIN. UPDATED HIM ON PATIENT'S CONDITION. STATES THAT HE IS CONCERNED ABOUT HER LIVER AND WANTS TO FIND OUT HOW THEY CAN GET HER A LIVER TRANSPLANT. HIS NUMBER IS [phone]
--- NOTE | 2019-05-09 15:27 | NUR ---
PATIENT CLEANED AND REPOSITIONED, DRESSING ON THE LEFT PARACENTESIS SITE WAS CHANGED. VAP ORAL CARE GIVEN, NO SIGNS OF DISTRESS NOTED.
--- NOTE | 2019-05-09 16:15 | NUR ---
PATIENT STARTED ON TUBE FEEDING AT 40 ML/HR, NO RESIDUAL NOTED. WILL CONTINUE TO MONITOR
--- NOTE | 2019-05-09 19:01 | NUR ---
Received pt stable on vent support at documented settings, suctioned small amount of thin clear secretions, no resp distress or SOB noted at this time, found 7.5 ETT secured at 22 cm at the lip, alarms set and audible, ambu bag at bedside, vent plugged into red outlet, cont pulse ox on, ventilator wiped down, will cont to monitor.
--- NOTE | 2019-05-09 19:11 | NUR ---
SPOKE WITH DR. PARKER REGARDING TUBE FEEDING, STATES OK FOR H20 FLUSH AT 50ML Q6H
--- NOTE | 2019-05-09 19:17 | NUR ---
DR. PARKER IS HERE TO SEE PATIENT, UPDATED ON PATIENT'S CONDITION. WILL FOLLOW UP ON ANY ORDERS.
--- NOTE | 2019-05-09 19:18 | NUR ---
ENDORSED CONTINUITY OF CARE TO CORPORATE JOB TITLES MARK. EKATERINA
--- NOTE | 2019-05-09 19:30 | NUR ---
RECEIVED REPORT FROM AM NURSE, PT AT BED EYES CLOSED, BREATHING REGULARLY, ETT TO VENT SIZE 7.5 TAPED AT 21 AT TEETH, AC/VC, FIO2 30%, TV 400, PEEP 5, RR 15, PERRL 3MM, SLUGGISH, PT SEDATED RASS -2, HEART REGULAR, S1S2 PRESENT, SR ON MONITOR, CAP REFILL <3S, PULSES 2+ BILATERAL UPPER AND LOWER EXTREMITIES, ABDOMEN, DISTENDED, ROUND, NONTENDER, ABDOMEN, SOFT, ROUND, NONTENDER, ELLIOTT CATHETER IN PLACE. PT HAS GENERALIZED WEAKNESS, SKIN WARM, DRY, NONINTACT, DRESSING IN PLACE ON BILATERAL MEDIAL SIDE OF ABDOMEN, DRESSING, DRY, INTACT. FECAL BAG IN PLACE, SCD IN PLACE, PT HAS RIGHT HAND 20 GAUGE RUNNING NS AT 80 ML/HR, PROPOFOL RUNNING AT 10 MCG/MIN, LEFT WRIST 20 GAUGE, SALINE LOCK, HOB 30 DEGREES, SIDE RAILS UP X2, BED AT LOWEST POSITION. Addendum: 05/10/19 at 0619 by Venkatesh Sargent RN DRY WEIGHT 61.6 KG Addendum: 05/12/19 at 1921 by Venkatesh Sargent RN CORRECTION: PROPOFOL RUNNING AT 10 MCG/KG/MIN
[2019-05-09] MEDS: ALBUMIN HUMAN 25% 100 ML IV SCH (20:38)
--- NOTE | 2019-05-09 22:10 | NUR ---
PT HAD AN EPISODE OF VOMITING. RECHECKED RESIDUALS. 200 ML ASPIRATED. HELD FEEDING FOR NOW.
[2019-05-09 22:22] LABS: ANION GAP 20.9 (8-16); CARBON DIOXIDE 14.6 mmol/L (21-32); CREATININE 2.3 mg/dL (0.6-1.3); POTASSIUM 4.5 mmol/L (3.5-5.1)
[2019-05-10] VITALS (63 sets, daily range): BP systolic 85–127; BP diastolic 44–72
[2019-05-10] MEDS: LACTULOSE 20 GM/30 ML UDC NG SCH ×5 (00:27→23:15)
[2019-05-10] MEDS: BLOOD GLUCOSE MONITORING 1 DEV DEV FS SCH ×4 (00:41→17:24)
--- NOTE | 2019-05-10 00:41 | NUR ---
MEDICATIONS GIVEN, VAP ORAL CARE PERFORMED PT TOLERATED WELL, RECHECKED RESIDUALS RESULTED AT 150 ML. WILL CONTINUE HOLD FOR FEEDING.
--- NOTE | 2019-05-10 03:53 | NUR ---
RECHECKED NGTUBE RESIDUAL. AMOUNT IS 180 ML. WILL CONTINUE TO HOLD FEEDING.
[2019-05-10] MEDS: ALBUMIN HUMAN 25% 100 ML IV SCH ×3 (04:20→20:17)
[2019-05-10] MEDS: PROPOFOL 1000 MG/100 ML PREMIX 100 ML IV PRN (04:34)
--- NOTE | 2019-05-10 06:21 | NUR ---
RECHECKED NGTUBE RESIDUAL. AMOUNT IS 180 ML. WILL CONTINUE TO HOLD FEEDING.
--- NOTE | 2019-05-10 06:49 | NUR ---
RECEIVED INTUBATED PT WITH A 7.5 ETT SECURED @21 TEETH/GUMS ON VENT. SETTINGS AC/VC 15, VT400, PEEP 5 AND FIO2 28%. PT SUCTIONED OBTAINED SMALL AMOUNT OF THICK PALE YELLOW SECRETIONS, AIRWAY IS PATENT AND ETT IS SECURE. PT SEDATED AT THIS TIME NOT IN ANY DISTRESS. VENT IS PLUGGED INTO A RED OUTLET WITH ALARMS ON AND FUNCTIONING. WILL CONTINUE TO MONITOR.
[2019-05-10 07:03] LABS: BASOPHILS % (AUTO) 0.1 % (0.0-2.0); EOSINOPHILS % (AUTO) 0.5 % (0.0-4.0); HEMATOCRIT 24.8 % (36-48); HEMOGLOBIN 8.4 g/dL (12.0-16.0); LYMPHOCYTES # (AUTO) 0.9 K/uL (2.5-16.5); LYMPHOCYTES % (AUTO) 10.1 % (20.5-51.1); MEAN CORPUSCULAR HEMOGLOBIN 35 pg (27-31); MEAN CORPUSCULAR HGB CONC 34 g/dL (33-37); MEAN CORPUSCULAR VOLUME 104.1 fL (80-94); MONOCYTES % (AUTO) 10.9 % (1.7-9.3); NEUTROPHILS % (AUTO) 78.4 % (42.2-75.2); PLATELET COUNT (AUTO) 74 K/uL (140-450); RED BLOOD CELL COUNT(AUTO) 2.38 MIL/uL (4.20-5.40); RED CELL DISTRIBUTION WIDTH 16.2 % (11.6-13.7)
--- NOTE | 2019-05-10 07:30 | NUR ---
RECEIVED BEDSIDE REPORT FROM RADIOLOGY TRANSPORTER RN. PT IS SEDATED, ON PROPOFOL DRIP, RASS -2. FLACC 0. AFEBRILE. NORMAL SINUS RHYTHM ON MONITOR. S1 S2 HEARD. PULSES PALPABLE TO ALL EXTREMITIES. PT IS ETT TO VENT: A/C VC: FIO2 28%, VT 400, RR 15, PEEP 5. LUNGS CLEAR BILATERALLY, BREATHING EVEN AND UNLABORED. NO SOB NOTED. NGT IN PLACE TO LEFT NARE, PLACEMENT CONFIRMED. ABDOMEN ROUND, NONTENDER AND DISTENDED, 300 ML GASTRIC RESIDUALS NOTED. TUBE FEEDING HELD AT THIS TIME. PERIPHERAL IVS G20 TO RIGHT HAND AND LEFT WRIST ASYMPTOMATIC, PATENT AND INTACT. PT IS RECEIVING PROPOFOL DRIP AT 14 MCG/KG/MIN AT THIS TIME (DRY WEIGHT 61.8 KG). ELLIOTT CATH IN PLACE DRAINING YELLOW URINE TO GRAVITY. FECAL BAG IN PLACE DRAINING LIQUID STOOL TO DRAINAGE BAG. SCDS IN PLACE FOR VTE PROPHYLAXIS. HOB AT 30 DEGREES. BED IN LOWEST POSITION LOCKED. CALL LIGHT WITHIN REACH. WILL CONTINUE TO MONITOR.
[2019-05-10 07:32] LABS: ALBUMIN 2.8 g/dL (3.4-5.0); ANION GAP 18.1 (8-16); CARBON DIOXIDE 18.7 mmol/L (21-32); CREATININE 2.4 mg/dL (0.6-1.3); MAGNESIUM 2.1 mg/dL (1.8-2.4); POTASSIUM 3.8 mmol/L (3.5-5.1); TOTAL BILIRUBIN 2.4 mg/dL (0.0-1.0)
--- NOTE | 2019-05-10 08:24 | NUR ---
PATIENT HAS BEEN SCREENED AND CATEGORIZED HIGH NUTRITION RISK. PATIENT WILL BE SEEN WITHIN 1-2 DAYS OF ADMISSION. 05/09/19-05/10/[address]
--- NOTE | 2019-05-10 09:25 | NUR ---
DR. REILLY IN TO SEE AND EXAMINE PT. WILL FOLLOW UP ON ORDERS.
[2019-05-10] MEDS: PANTOPRAZOLE 40 MG INJ VIAL IVP SCH (09:29)
--- NOTE | 2019-05-10 10:44 | NUR ---
PT SEEN AND EXAMINED BY DR. ALLRED. WILL FOLLOW UP ON ORDERS. Addendum: 05/10/19 at 1407 by Oseas Carranza RN DR. ALLRED MADE AWARE OF HIGH GASTRIC RESIDUALS, DISTENDED ABDOMEN, LEAKAGE FROM PARACENTESIS SITE. NO NEW ORDER AT THIS TIME. WILL FOLLOW UP ON OTHER NEW ORDERS.
--- NOTE | 2019-05-10 11:18 | NUR ---
VENT CHECK COMPLETED PT NOT IN ANY DISTRESS AT THIS TIME. WILL CONTINUE TO MONITOR.
--- NOTE | 2019-05-10 11:59 | NUR ---
SKIN ASSESSMENT DONE FOR LOW OSBALDO SCALE AT RISK, SKIN INTACT, LLQ ABD. WITH SMALL NEEDLE SIZE OPEN AREA NO DRAINAGE, DRESSING DRY CLEAN, NO S/S OF INFECTION. PER PRIMARY RN S/P PARACENTESIS PROCEDURE. CONTINUE TO FOLLOW PRESSURE ULCER PREVENTION INTERVENTIONS. -CLEANSE LLQ ABD. NEEDLE SIZE OPEN AREA WITH NS. PAT DRY AND COVER WITH DRY DRESSING PRN IF SOILING. -TURN AND REPOSITION PATIENT Q 2H -ASSESS AND MONITOR SKIN CONDITION DURING POSITION CHANGE -OFFLOAD BILATERAL HEELS BY PLACING PILLOWS UNDER CALVES AT ALL TIMES, UNLESS OTHERWISE CONTRAINDICATED -PRESSURE REDISTRIBUTION BY PLACING PILLOWS AND OFFLOADING SACRALCOCCYX -KEEP SKIN CLEAN AND DRY AT ALL TIMES.
[2019-05-10] MEDS ORDERED: GAUZE TP PRN (12:10)
--- NOTE | 2019-05-10 12:10 | NUR ---
DR. ALLRED MADE AWARE OF AMMONIA LEVEL. ORDER RECEIVED TO TURN OFF SEDATION AND EXTUBATE PT.
--- NOTE | 2019-05-10 12:15 | NUR ---
PROPOFOL OFF. RT SAULO MADE AWARE.
--- NOTE | 2019-05-10 12:28 | NUR ---
PT PLACED ON CPAP 5 PS 8 AND FIO2 28% FOR TEN MINUTES AND TOLERATED WELL WITH ADEQUATE VT AND WEANING PARAMETERS. VC: 1546 ml, RSBI LOW 20'S. NIF (-25) .
--- NOTE | 2019-05-10 12:30 | NUR ---
PT EXTUBATED AND PLACED ON 3L NC. PT ABLE TO FOLLOW COMMANDS. BS CLEAR BILATERALLY NO STRIDOR HEARD ON AUSCULTATION. NURSE AWARE. WILL CONTINUE TO MONITOR.
--- NOTE | 2019-05-10 12:35 | NUR ---
S/P EXTUBATION. PT DROWSY. VSS. ON O2 AT 3 LPM/NC. SPO2 97%. NO SOB NOTED. LUNGS SOUND CLEAR BILATERALLY. WILL CONTINUE TO MONITOR.
[2019-05-10] MEDS: MIDODRINE 5 MG TAB PO SCH ×2 (12:55→17:22)
--- NOTE | 2019-05-10 14:16 | NUR ---
CONTACTED [facility] AT [phone], ABLE TO SPEAK TO GRETEL REGARDING POST DISCHARGE APPOINTMENT. SHE STATED PATIENT HAS SCHEDULE APPOINTMENTS ON MAY 14, 2019 [address] TATE, May 1245 FOR FOLLOW UP VISIT WITH DR. DU AND ON MAY [address] CASTILLO. WILL KEEP ALL APPOINTMENTS.
--- NOTE | 2019-05-10 15:10 | NUR ---
NGT DISCONTINUED PER ORDER. PT TOLERATED WELL.
--- NOTE | 2019-05-10 15:21 | NUR ---
BEDSIDE SWALLOW EVAL DONE. PT HAD JELLO, DRANK APPLE JUICE W/O ANY SOB, COUGH OR ANY OTHER DISTRESS. VSS. CHARGE NURSE AT BEDSIDE AWARE.
--- NOTE | 2019-05-10 17:15 | NUR ---
DINNER PROVIDED. SISTER AT BEDSIDE, FEEDING PT. PT HAD SHERBERT, JELLO AND APPLE JUICE ONLY. NO SOB OR COUGHING NOTED. HOB ELEVATED 60 DEGREES. VSS. SAFETY PRECAUTIONS IN PLACE. WILL CONTINUE TO MONITOR.
--- NOTE | 2019-05-10 17:18 | NUR ---
05/10/19 RD INITIAL ASSESSMENT COMPLETED PLEASE REFER TO NUTRITION ASSESSMENT UNDER CARE ACTIVITY FOR ESTIMATED NUTRITIONAL NEEDS. 1. CONTINUE REGULAR DIET TOLERATED 2. RD TO FOLLOW-UP 2-3 DAYS, RISK CHRIS JIMENEZ RD
[2019-05-10] MEDS: INSULIN LISPRO SLIDING SCALE 100 UNITS/ML VIAL SUBQ PRN (17:28)
--- NOTE | 2019-05-10 18:00 | NUR ---
TURNED AND REPOSITIONED PT FOR COMFORT AND OFF LOADING PRESSURE AREAS. TOLERATED WELL. SISTER AT BEDSIDE.
--- NOTE | 2019-05-10 19:15 | NUR ---
RECEIVED PATIENT ON ROOM AIR, PATIENT PULLED OFF NASAL CANNULA, PULSE OX SAT 95%. NO COMPLAINTS OF SOB. PRN HHN NOT INDICATED AT THIS TIME. NO ACUTE RESPIRATORY DISTRESS NOTED AT THIS TIME. WILL CONTINUE TO MONITOR.
--- NOTE | 2019-05-10 19:15 | NUR ---
REPORT GIVEN TO BENCH PATTERNMAKER METAL RN FOR CONTINUITY OF CARE. PT IS IN STABLE CONDITION.
--- NOTE | 2019-05-10 19:20 | NUR ---
RECEIVED REPORT FROM AM NURSE, PT AT BED EYES CLOSED, BREATHING REGULARLY AT ROOM AIR, LUNG SOUNDS CLEAR THROUGHOUT, PERRLA 3MM, BRISK, PT LETHARGIC, HEART REGULAR, S1S2 PRESENT, SR ON MONITOR, CAP REFILL <3S, PULSES 2+ BILATERAL UPPER AND LOWER EXTREMITIES, ABDOMEN, DISTENDED, ROUND, NONTENDER, ABDOMEN, SOFT, ROUND, NONTENDER, ELLIOTT CATHETER IN PLACE. PT HAS GENERALIZED WEAKNESS, SKIN WARM, DRY, NONINTACT, DRESSING IN PLACE ON BILATERAL MEDIAL SIDE OF ABDOMEN, DRESSING, DRY, INTACT, SCD IN PLACE, PT HAS RIGHT HAND 20 GAUGE RUNNING NS AT 5 ML/HR,HOB 30 DEGREES, SIDE RAILS UP X2, BED AT LOWEST POSITION.
--- NOTE | 2019-05-10 23:20 | NUR ---
REPOSITIONED PT AT BED, PT REQUESTED APPLE JUICE AND ICE CHIPS, PT SWALLOWED DRINKS WELL. WILL CONTINUE TO MONITOR.
[2019-05-11] VITALS (8 sets, daily range): BP systolic 93–131; BP diastolic 48–103
[2019-05-11] MEDS: BLOOD GLUCOSE MONITORING 1 DEV DEV FS SCH ×4 (00:38→17:29)
--- NOTE | 2019-05-11 01:00 | NUR ---
PT AWAKE AT BED, REQUESTED FOR ICE CHIPS. PT AT STABLE CONDITION AT THIS TIME. WILL CONTINUE TO MONITOR.
[2019-05-11] MEDS: INSULIN LISPRO SLIDING SCALE 100 UNITS/ML VIAL SUBQ PRN ×3 (01:11→17:30)
--- NOTE | 2019-05-11 03:27 | NUR ---
REPOSITIONED PT AT BED, PT REQUESTED ICED WATER, PT SWALLOWED DRINKS WELL. WILL CONTINUE TO MONITOR.
[2019-05-11] MEDS ORDERED: ALBUMIN HUMAN 25% 100 ML IV ONE (04:49)
[2019-05-11] MEDS: ALBUMIN HUMAN 25% 100 ML IV SCH ×2 (04:54→13:29)
[2019-05-11] MEDS: LACTULOSE 20 GM/30 ML UDC NG SCH ×3 (06:00→17:29)
--- NOTE | 2019-05-11 06:24 | NUR ---
PT AT BED EYES CLOSED, ON ROOM AIR. BREATHING REGULARLY, SIDE RAILS UP X2, HOB AT 30 DEGREES, BED AT LOWEST POSITION.
--- NOTE | 2019-05-11 07:20 | NUR ---
RECEIVED BEDSIDE REPORT FROM APPLE PICKING SUPERVISOR RN, RUBEN, FOR CONTINUITY OF CARE. PATIENT AAOX4, ABLE TO FOLLOW COMMANDS AND MAKE NEEDS KNOWN. PATIENT SKIN IS WARM, DRY , INTACT. SHE IS ON NASAL CANNULA 2LPM, BREATHING EVEN AND UNLABORED. SR ON MONITOR, DENIES ANY PAIN. SHE HAS ELLIOTT CATHETER IN PLACE. HOB SEMI FOWLERS, SIDE RAILS UP 3X, BED LOCKED IN LOW POSITION. CALL LIGHT WITHIN REACH. NO SIGNS OF DISTRESS NOTED. WILL CONTINUE TO MONITOR
--- NOTE | 2019-05-11 08:37 | NUR ---
DR. ALLRED IS HERE TO SEE AND EXAMINE PATIENT, UPDATED ON PATIENT'S CONDITION. WILL FOLLOW UP ON ANY ORDERS.
[2019-05-11] MEDS: PANTOPRAZOLE 40 MG INJ VIAL IVP SCH (09:08)
[2019-05-11] MEDS: MIDODRINE 5 MG TAB PO SCH ×3 (09:08→17:29)
[2019-05-11 09:41] LABS: BASOPHILS % (AUTO) 0.6 % (0.0-2.0); EOSINOPHILS # (AUTO) 0.1 K/uL (0-0.4); EOSINOPHILS % (AUTO) 2.2 % (0.0-4.0); HEMATOCRIT 21.9 % (36-48); HEMOGLOBIN 7.4 g/dL (12.0-16.0); LYMPHOCYTES # (AUTO) 0.5 K/uL (2.5-16.5); LYMPHOCYTES % (AUTO) 12.9 % (20.5-51.1); MEAN CORPUSCULAR HEMOGLOBIN 35 pg (27-31); MEAN CORPUSCULAR HGB CONC 34 g/dL (33-37); MEAN CORPUSCULAR VOLUME 104.7 fL (80-94); MONOCYTES # (AUTO) 0.4 K/uL (0.8-1.0); MONOCYTES % (AUTO) 9.3 % (1.7-9.3); NEUTROPHILS # (AUTO) 2.9 K/uL (1.8-7.7); PLATELET COUNT (AUTO) 62 K/uL (140-450); RED BLOOD CELL COUNT(AUTO) 2.09 MIL/uL (4.20-5.40); RED CELL DISTRIBUTION WIDTH 16.1 % (11.6-13.7); WHITE BLOOD COUNT (AUTO) 3.9 K/uL (4.8-10.8)
[2019-05-11 11:29] LABS: ALBUMIN 4.1 g/dL (3.4-5.0); ANION GAP 18.9 (8-16); CARBON DIOXIDE 17.3 mmol/L (21-32); CREATININE 2.2 mg/dL (0.6-1.3); POTASSIUM 3.2 mmol/L (3.5-5.1); TOTAL BILIRUBIN 2.6 mg/dL (0.0-1.0)
--- NOTE | 2019-05-11 11:51 | NUR ---
MET WITH THE PATIENT AT THE BEDSIDE TO DISCUSS DC PLAN TO SNF FOR PHYSICAL THERAPY. PATIENT IS AWAKE AND ORIENTED X4, ABLE TO MAKE HER NEEDS KNOWN. PATIENT STATED SHE DOES NOT WANT TO GO TO A SNF "I WANT TO GO HOME." EXPLAINED TO HER THAT IT IS GOING TO BE SHORT TERM UNTIL SHE GETS BACK ON HER FEET. I ALSO INFORMED HER THAT PT WILL BE EVALUATING HER AND WILL WAIT FOR THEIR RECOMMENDATIONS. PATIENT IS AGREEABLE WITH PT EVAL. I ALSO ASKED HER IF SHE WANTS ME TO INFORM HER FAMILY REGARDING THE DC PLAN, SHE SAID NO. PRIMARY RN AND CHARGE NURSE MADE AWARE.
--- NOTE | 2019-05-11 15:28 | NUR ---
ORDER FOR SNF EVALUATION FOR PT FAXED TO [facility]. REFERRAL FAXED TO [facility]. Addendum: 05/11/19 at 1533 by Arminda Wing CM WILL FOLLOW UP
--- NOTE | 2019-05-11 15:44 | NUR ---
CONTACTED TRISTIN OF [facility], MADE HER AWARE THAT I FAXED REFERRAL TO [facility]. CONTACTED [facility] AT [phone], ABLE TO SPEAK TO VIRAL. SHE STATED THEY ARE STILL IN A MEETING AND WILL GOING TO REVIEW THE REFERRAL AND WILL GIVE ME A CALL. PROVIDED HER OF MY CONTACT INFO.
--- NOTE | 2019-05-11 16:20 | NUR ---
DR. YAO IS HERE TO SEE PATIENT, STATES TO GIVE PATIENT POTASSIUM 40 MEQ PO
--- NOTE | 2019-05-11 18:27 | NUR ---
TRANSFERRED PATIENT TO [facility] VIA BED. PATIENT IS NOW IN 120 B, FAMILY IS AWARE. NO SIGNS OF DISTRESS AT THIS TIME
[2019-05-11] MEDS ORDERED: POTASSIUM CHLORIDE 10 MEQ TABER PO SCH (19:04)
--- NOTE | 2019-05-11 19:05 | NUR ---
RECEIVED REPORT FROM ICU NURSE FOR CONTINUITY OF CARE, PATIENT FAMILY MEMBERS AT BEDSIDE. NO COMPLAINTS AT THIS TIME, WILL FOLLOW UP CARE
[2019-05-12] VITALS: BP 113/56
[2019-05-12] MEDS: BLOOD GLUCOSE MONITORING 1 DEV DEV FS SCH ×5 (00:43→23:44)
--- NOTE | 2019-05-12 01:25 | NUR ---
DR. ALLRED IN TO ASSESS PATIENT, UPDATED PATIENT ON TREATMENT PLAN. PENDING DISCHARGE ORDERS
--- NOTE | 2019-05-12 02:25 | NUR ---
PATIENT COMPLAINING OF DIFFICULTY BREATHING, SAYS SHE FEELS WHEEZY, PATIENT ON 02 NASAL CANNULA 2LPM, SATURATING AT 89%, INCREASED TO 4L, NOW SATURATING AT 94%. RT MADE AWARE, PENDING BREATHING TREATMENT
[2019-05-12] MEDS: ALBUTEROL 0.083% 2.5 MG/3 ML NEBU INH PRN (02:32)
--- NOTE | 2019-05-12 03:10 | NUR ---
PAGED TO ENDORSE PATIENT UPDATE. PATIENT COMPLAINING OF NEW ONSET COUGH, FEELING SOB, PATIENT O2 INCREASED TO 4L, LUNG SOUNDS RALES/CRACKLES. WAITING FOR CALL BACK
--- NOTE | 2019-05-12 03:45 | NUR ---
DR. ALLRED MADE AWARE OF PATIENTS C/O SOB, NEW ONSET COUGH. NEW ORDERS IN PLACE, WILL CARRY OUT
[2019-05-12 04:00] VITALS: BP 124/55
--- NOTE | 2019-05-12 04:30 | NUR ---
PT COMPLAINING OF SOB, PRESENTED WITH BILATERAL WET RALES/CRACKLES, CXR TAKEN AND PLACED ON BIPAP PER DR ALLRED, PLACED ON CONT PULSE OX AT THIS TIME. SPO2 95% HR 95
--- NOTE | 2019-05-12 04:35 | NUR ---
PATIENT STARTED ON BIPAP, AND CONNECTED TO TELE MONITOR FOR CLOSE OBSERVATION. SOB IMPROVING, CONNECTED TO CONTINUOUS PULSE OXIMETER, SATURATIONS > 95%. WILL CONTINUE TO MONITOR
[2019-05-12] MEDS: LACTULOSE 20 GM/30 ML UDC NG SCH ×6 (06:00→23:48)
[2019-05-12] MEDS: methylPREDNISolone SS 40 MG/ML VIAL IVP SCH ×4 (06:00→23:38)
--- NOTE | 2019-05-12 06:10 | NUR ---
PATIENT REFUSED LACTULOSE, BIPAP STILL IN PLACE, PATIENT REQUESTING TO REMOVE MASK. WILL ENDORSE TO RT
[2019-05-12 06:50] LABS: ALBUMIN 4.4 g/dL (3.4-5.0); ANION GAP 22.3 (8-16); CARBON DIOXIDE 16.5 mmol/L (21-32); CREATININE 2.1 mg/dL (0.6-1.3); POTASSIUM 3.8 mmol/L (3.5-5.1)
[2019-05-12] MEDS: INSULIN LISPRO SLIDING SCALE 100 UNITS/ML VIAL SUBQ PRN ×3 (06:53→23:49)
--- NOTE | 2019-05-12 07:00 | NUR ---
RCV'D PT ON BIPAP. PT WANTED TO TAKE BIPAP OFF. TOOK PT OFF BIPAP AND WILL CONTINUE TO MONITOR. PT IS CURRENTLY ON 3 L NASAL CANNULA WITH SPO2 OF 95%. NO SOB OR DISTRESS NOTED. BIPAP AT BEDSIDE PRN. WILL CONTINUE TO MONITOR.
[2019-05-12 07:09] LABS: BASOPHILS % (AUTO) 0.1 % (0.0-2.0); EOSINOPHILS # (AUTO) 0.1 K/uL (0-0.4); EOSINOPHILS % (AUTO) 1.4 % (0.0-4.0); HEMATOCRIT 25.3 % (36-48); HEMOGLOBIN 8.4 g/dL (12.0-16.0); LYMPHOCYTES # (AUTO) 0.4 K/uL (2.5-16.5); LYMPHOCYTES % (AUTO) 5.4 % (20.5-51.1); MEAN CORPUSCULAR HEMOGLOBIN 35 pg (27-31); MEAN CORPUSCULAR HGB CONC 33 g/dL (33-37); MEAN CORPUSCULAR VOLUME 106.6 fL (80-94); MONOCYTES # (AUTO) 0.7 K/uL (0.8-1.0); MONOCYTES % (AUTO) 10.9 % (1.7-9.3); NEUTROPHILS # (AUTO) 5.5 K/uL (1.8-7.7); NEUTROPHILS % (AUTO) 82.2 % (42.2-75.2); PLATELET COUNT (AUTO) 71 K/uL (140-450); RED BLOOD CELL COUNT(AUTO) 2.38 MIL/uL (4.20-5.40); RED CELL DISTRIBUTION WIDTH 16.3 % (11.6-13.7); WHITE BLOOD COUNT (AUTO) 6.7 K/uL (4.8-10.8)
--- NOTE | 2019-05-12 07:15 | NUR ---
RECEIVED REPORT FROM VETERINARY PARASITOLOGIST NURSE JAXSON FOR CONTINUITY OF CARE. PT IN STABLE CONDITION. RESPIRATIONS EVEN AND UNLABORED. IV INTACT AND PATENT. SAFETY MEASURES IN PLACE. BED IN LOW POSITION. BED ALARM ON. WILL CONTINUE TO MONITOR.
[2019-05-12 08:00] VITALS: BP 125/64
--- NOTE | 2019-05-12 09:02 | NUR ---
ASSISTED WITH BEDPAN AT THIS TIME. PT TOLERATED WELL. BED IN LOW POSITION. BED ALARM ON. CALL LIGHT AT BEDSIDE. WILL CONTINUE TO MONITOR.
--- NOTE | 2019-05-12 10:00 | NUR ---
RECEIVED A CALL FROM [facility] SPOKE WITH SUZIE COHEN BED AVAILABLE
--- NOTE | 2019-05-12 10:42 | NUR ---
Consulting Practice Manager Note: I received a call from patient's son Joe . He stated he accidentally provided me with wrong home address of patient. He stated she lives at [address] [place] [address].
[2019-05-12] MEDS: MIDODRINE 5 MG TAB PO SCH ×3 (11:05→18:06)
[2019-05-12] MEDS: PANTOPRAZOLE 40 MG INJ VIAL IVP SCH (11:05)
--- NOTE | 2019-05-12 11:38 | NUR ---
FAXED TO [facility]
--- NOTE | 2019-05-12 11:44 | NUR ---
ASSISTED WITH BEDPAN AT THIS TIME. PT TOLERATED WELL. BED IN LOW POSITION. BED ALARM ON. CALL LIGHT AT BEDSIDE. WILL CONTINUE TO MONITOR.
--- NOTE | 2019-05-12 12:22 | NUR ---
SPOKE TO ANGELA (SISTER) WITH [employer] FROM PT TO GIVE UPDATE.
[2019-05-12] MEDS: SODIUM BICARBONATE 650 MG TAB PO SCH ×2 (13:27→18:06)
--- NOTE | 2019-05-12 14:00 | NUR ---
PT LYING IN BED IN STABLE CONDITION. GAVE ORDERED DUE MEDICATIONS AT THIS TIME.
--- NOTE | 2019-05-12 15:40 | NUR ---
RECEIVED A CALL FROM [facility] TO GO TO [facility] AUTH# TRANSPORT AUTH # [id number] PT CAN GO TO ROOM 51B UNDER THE CARE OF DR ARELLANO. # TO GIVE REPORT [phone]. ARRANGED TRANSPORT WITH [facility] TIME IS 7:30PM NOTIFIED ALLYSSA TOBAR
[2019-05-12 16:00] VITALS: BP 116/69
--- NOTE | 2019-05-12 17:35 | NUR ---
ASSISTED WITH BEDPAN AT THIS TIME. PT TOLERATED WELL. BED IN LOW POSITION. BED ALARM ON. CALL LIGHT AT BEDSIDE. WILL CONTINUE TO MONITOR.
--- NOTE | 2019-05-12 17:40 | NUR ---
PT REFUSED SNF PLACEMENT AT THIS TIME. PT WANTS TO GO HOME. INFORMED VALDO MACHADO.
--- NOTE | 2019-05-12 19:25 | NUR ---
GAVE REPORT TO COLLECTION CORRESPONDENT NURSE FOR CONTINUITY OF CARE. PT IN STABLE CONDITION.
--- NOTE | 2019-05-12 19:26 | NUR ---
REPORT RECEIVED FROM AM NURSE AT BEDSIDE. PT IN STABLE CONDITION. AAOX4. INTRODUCED SELF TO PT. BOARD UPDATED. NO COMPLAINTS OF PAIN. NO SOB 2L O2 VIA NC. AFEBRILE. PT IS ON BEDREST. IV SITE R HAND 20G SL PATENT AND INTACT. SKIN WARM, DRY, AND INTACT WITH NO OPEN WOUNDS. BED LOCKED IN LOW POSITION. CALL FELDER WITHIN REACH. SAFETY PRECAUTION IN PLACE. ALL NEEDS MET AT THIS TIME. WILL CONTINUE TO MONITOR.
--- NOTE | 2019-05-12 20:00 | NUR ---
PT TO BE DISCHARGED WHEN SISTER COMES TO PICK HER UP. MD NOTIFIED THAT PATIENT DOES NOT WANT TO LEAVE HOSPITAL DUE TO WEAKNESS. MD ORDERS TO DISCHARGE THE PATIENT.
--- NOTE | 2019-05-12 20:45 | NUR ---
PT STILL UNWILLING TO LEAVE THE HOSPITAL DUE TO NOT HAVING BEDSIDE COMMODE OR WALKER FOR HOME. MD NOTIFIED. MD SAID EQUIPMENT WILL BE SENT HOME TOMORROW MORNING OR WHEN PT ARRIVES FOR THERAPY. MD ORDERS TO DISCHARGE PATIENT.
--- NOTE | 2019-05-12 21:00 | NUR ---
MAINSPRING BARREL ASSEMBLY CLEANER IN TO SPEAK TO PATIENT REGARDING STAY. PT IS ON 2L O2 VIA NC. WILL ASSESS O2 SATURATION AND NOTIFY MD OF RESULTS.
--- NOTE | 2019-05-12 21:25 | NUR ---
RT IN TO SEE PATIENT. RT ASSESSMENT OF 90% ON RA AND HR OF 96. 93% ON 2L O2 VIA NC AND HR 95. RT RECOMMENDS OVERNIGHT STAY AND O2 ASSESSMENT IN THE AM. WILL NOTIFY
--- NOTE | 2019-05-12 21:35 | NUR ---
CALLED MD AND TOLD HIM RECOMMENDATIONS OF RT. MD AGREES. PT WILL STAY OVERNIGHT AND WILL HAVE O2 ASSESSMENT IN THE MORNING.
--- NOTE | 2019-05-12 22:45 | NUR ---
PT SLEEPING COMFORTABLY BUT AROUSABLE. NO S/S OF DISTRESS NOTED. NO COMPLAINTS OF PAIN. NO SOB. AFEBRILE.
--- NOTE | 2019-05-12 23:38 | NUR ---
BS 428. NOTIFIED. ORDERED TO GIVE 16 UNITS OF INSULIN. SOLUMEDROL GIVEN IVP. LACTULOSE HELD DUE TO LOOSE STOOLS AND AMMONIA WNL. PT TOLERATED WELL.
[2019-05-13] VITALS: BP 122/60
--- NOTE | 2019-05-13 01:00 | NUR ---
PT SLEEPING COMFORTABLY BUT AROUSABLE. NO S/S OF DISTRESS NOTED. NO RESPIRATIONS EVEN, UNLABORED, AND WNL. WILL CONTINUE TO MONITOR.
--- NOTE | 2019-05-13 02:50 | NUR ---
PT SLEEPING COMFORTABLY BUT AROUSABLE. NO S/S OF DISTRESS NOTED. NO COMPLAINTS OF PAIN. NO SOB. AFEBRILE. WILL CONTINUE TO MONITOR.
[2019-05-13] MEDS: methylPREDNISolone SS 40 MG/ML VIAL IVP SCH ×3 (05:07→17:48)
--- NOTE | 2019-05-13 05:07 | NUR ---
SOLUMEDROL GIVEN IVP. ROCEPHIN MEET AND HERNÁN. BS 291. 6 UNITS OF HUMALOG GIVEN. PT TOLERATED WELL.
[2019-05-13] MEDS: BLOOD GLUCOSE MONITORING 1 DEV DEV FS SCH ×3 (05:12→18:46)
[2019-05-13] MEDS: LACTULOSE 20 GM/30 ML UDC NG SCH ×3 (05:13→18:00)
[2019-05-13] MEDS: INSULIN LISPRO SLIDING SCALE 100 UNITS/ML VIAL SUBQ PRN ×3 (05:14→20:02)
--- NOTE | 2019-05-13 06:45 | NUR ---
PT SLEEPING COMFORTABLY BUT AROUSABLE. NO S/S OF DISTRESS NOTED. PT IN STABLE CONDITION.
--- NOTE | 2019-05-13 07:15 | NUR ---
RECEIVED REPORT FROM LOADER TECHNICIAN NURSE COLTEN FOR CONTINUITY OF CARE. PT IN STABLE CONDITION. RESPIRATIONS EVEN AND UNLABORED. IV INTACT AND PATENT. O2 VIA NC IN PLACE AT THIS TIME. SAFETY MEASURES IN PLACE. BED IN LOW POSITION. BED ALARM ON. CALL LIGHT AT BEDSIDE. WILL CONTINUE TO MONITOR.
[2019-05-13] MEDS: ALBUTEROL 0.083% 2.5 MG/3 ML NEBU INH PRN ×2 (07:42→13:48)
--- NOTE | 2019-05-13 07:43 | NUR ---
AWAKE AND ALERT VERBALLY RESPONSIVE ASSESSMENT COMPLETED LABORED REVIEWED CXR DATED 05/12/19 "BILATERAL PERIHILAR INFILTRATES" HHN PRN THERAPY AND RESPIRATORY DRUG GIVEN ORDERED C/O NASAL DRYNESS POST HHN THERAY ADDED HUMIDIFIER YUE RESPIRONICS V60 BIPAP (#5974) AT BEDSIDE
--- NOTE | 2019-05-13 07:54 | NUR ---
RT AT BEDSIDE AT THIS TIME. PT IN STABLE CONDITION.
[2019-05-13 08:00] VITALS: BP 140/72
[2019-05-13] MEDS: SODIUM BICARBONATE 650 MG TAB PO SCH ×3 (10:18→17:43)
[2019-05-13] MEDS: MIDODRINE 5 MG TAB PO SCH ×3 (10:18→17:42)
[2019-05-13] MEDS: PANTOPRAZOLE 40 MG INJ VIAL IVP SCH (10:18)
[2019-05-13 10:37] LABS: HEMATOCRIT 25.4 % (36-48); HEMOGLOBIN 8.4 g/dL (12.0-16.0); LYMPHOCYTES # (AUTO) 0.3 K/uL (2.5-16.5); LYMPHOCYTES % (AUTO) 4.5 % (20.5-51.1); MEAN CORPUSCULAR HEMOGLOBIN 35 pg (27-31); MEAN CORPUSCULAR HGB CONC 33 g/dL (33-37); MEAN CORPUSCULAR VOLUME 106.3 fL (80-94); MONOCYTES # (AUTO) 0.5 K/uL (0.8-1.0); MONOCYTES % (AUTO) 6.5 % (1.7-9.3); NEUTROPHILS # (AUTO) 6.2 K/uL (1.8-7.7); PLATELET COUNT (AUTO) 56 K/uL (140-450); RED BLOOD CELL COUNT(AUTO) 2.38 MIL/uL (4.20-5.40)
[2019-05-13 10:45] LABS: MAGNESIUM 2.1 mg/dL (1.8-2.4); PHOSPHORUS 2.9 mg/dL (2.5-4.9)
[2019-05-13 10:46] LABS: ALBUMIN 3.6 g/dL (3.4-5.0); ANION GAP 19.5 (8-16); CARBON DIOXIDE 17.5 mmol/L (21-32); CREATININE 1.9 mg/dL (0.6-1.3)
--- NOTE | 2019-05-13 11:13 | NUR ---
PHYSICAL THERAPY AT THIS TIME. PT DESATURATES TO 87 ON ROOM AIR WITH MOBILITY. Addendum: 05/13/19 at 1131 by Jacklyn Whalen RN PHYSICAL THERAPY AT THIS TIME. PT DESATURATES TO 87% ON ROOM AIR WITH MOBILITY.
--- NOTE | 2019-05-13 13:45 | NUR ---
DR. ALLRED PAGED FOR BLOOD SUGAR ORDERS.
--- NOTE | 2019-05-13 14:12 | NUR ---
05/13/19 RD FOLLOW UP COMPLETED PLEASE REFER TO NUTRITION ASSESSMENT UNDER CARE ACTIVITY FOR ESTIMATED NUTRITIONAL NEEDS. 1. CONTINUE REGULAR DIET TOLERATED 2. RECOMMEND ENSURE BID 3. RD PROVIDED NUTRITION EDUCATION ON CIRRHOSIS. PATIENT ACCEPTED 4. ENCOURAGED TO INCREASE PO INTAKE, PT AGREED 5. RD TO FOLLOW-UP 3-5 DAYS, MODERATE RISK CHRIS JIMENEZ, RD
--- NOTE | 2019-05-13 14:22 | NUR ---
CALLED [facility] ,SPOKE WITH FITO STILL WAITING AUTHORIZATION FROM [facility]. CHECKED WITH [facility] ,WORKING ON IT AND WILL CALL BACK
--- NOTE | 2019-05-13 14:35 | NUR ---
DR. ALLRED PAGED FOR BLOOD SUGAR ORDERS.
--- NOTE | 2019-05-13 15:29 | NUR ---
ASSISTED PT WITH BEDPAN FOR BOWEL MOVEMENT. BED IN LOW POSITION. CALL LIGHT AT BEDSIDE. WILL CONTINUE TO MONITOR.
--- NOTE | 2019-05-13 15:45 | NUR ---
FELIZ ALLRED, [place] HOME BLOOD SUGAR MEDICATIONS TO BE GIVEN TO PT. PT VERBALIZED WILL HAVE SOMEONE BRING THE MEDICATION FROM HOME, NOT SURE WHAT THE DOSAGE OF GLYBURIDE IS AT THIS TIME.
[2019-05-13 16:00] VITALS: BP 133/70
--- NOTE | 2019-05-13 17:01 | NUR ---
CHECKED WITH FITO FROM [facility] PER FITO THE [employer] DEVELOPER WILL DELIVER THE O2 TO HER HOME AND JOHN WILL BRING THE OXYGEN TO THE HOSPITAL AND PT CAN BE DISCHARGED
--- NOTE | 2019-05-13 17:28 | NUR ---
FAMILY ARRIVED WITH PT HOME MEDICATIONS. GLYBURIDE 1.25MG BID PO.
--- NOTE | 2019-05-13 19:10 | NUR ---
GAVE REPORT TO [employer] NURSE SKYLAR FOR CONTINUITY OF CARE. PT IN STABLE CONDITION.
--- NOTE | 2019-05-13 19:11 | NUR ---
RECEIVED REPORT FROM DAY RN FOR CONTINUITY OF CARE. PT IN STABLE CONDITION. RESPIRATIONS EVEN AND UNLABORED. IV INTACT AND PATENT. O2 VIA NC IN PLACE AT THIS TIME. SAFETY MEASURES IN PLACE. BED IN LOW POSITION. BED ALARM ON. FAMILY AT BEDSIDE. POC DISCUSSED WITH PT AND FAMILY. C/C HIGH BLOOD SUGAR AND LEAKING ON DRESSING FROM PARACENTESIS. WILL CHANGE DRESSING AND CHECK BLOOD SUGAR. CALL LIGHT AT BEDSIDE. WILL CONTINUE TO MONITOR.
--- NOTE | 2019-05-13 19:48 | NUR ---
PAGED DR ALLRED FOR HIGH BLOOD SUGAR 492 PER GIVE SLIDING SCALE AND OKAY TO DISCHARGE.
--- NOTE | 2019-05-13 20:02 | NUR ---
GAVE 10 UNITS PER SLIDING SCALE PER ORDER FOR BLOOD SUGAR 492. PT TOLERATED WELL. NO S/S OF DISTRESS.
--- NOTE | 2019-05-13 20:25 | NUR ---
REMOVED IV, IV CATH IS INTACT. REMOVED ARM BAND. PT DAUGHTER SIGNED ALL DISCHARGE PAPERS. GAVE DISCHARGE INSTRUCTION TO PT AND FAMILY THEY VERBALIZED UNDERSTANDING. PT WAS WHEELED OUT BY [facility] IN STABLE CONDITION WITH BOYFRIEND ON HER HOME OXYGEN.
[2019-05-13] MEDS ORDERED: glyBURIDE 2.5 MG TAB PO SCH (21:00)
== END 2019-05-13 20:30 | disposition home health service (06) | DRG 279 ==
LOC: MED 23:14 → MIC 05-09 04:29 → MTU 05-11 18:20
PROVIDERS: ADMIT Internal Medicine Pulmonary Disease; ATTEND Internal Medicine Pulmonary Disease
PROC: 5A1945Z Respiratory Ventilation, 24-96 Consecutive Hours (ICD-10-PCS; principal; 2019-05-09)
PROC: 0BH17EZ Insertion of Endotracheal Airway into Trachea, Via Natural or Artificial Opening (ICD-10-PCS; 2019-05-09)
DX: K72.90 Hepatic failure, unspecified without coma (principal); J96.00 Acute respiratory failure, unspecified whether with hypoxia or hypercapnia; K76.7 Hepatorenal syndrome; R65.11 Systemic inflammatory response syndrome (SIRS) of non-infectious origin with acute organ dysfunction; E44.0 Moderate protein-calorie malnutrition; E87.1 Hypo-osmolality and hyponatremia; R18.8 Other ascites; N17.9 Acute kidney failure, unspecified; E11.22 Type 2 diabetes mellitus with diabetic chronic kidney disease; E87.2 Acidosis; Z68.21 Body mass index [BMI] 21.0-21.9, adult; B19.20 Unspecified viral hepatitis C without hepatic coma; K74.60 Unspecified cirrhosis of liver; N18.9 Chronic kidney disease, unspecified; J45.909 Unspecified asthma, uncomplicated; Z88.8 Allergy status to other drugs, medicaments and biological substances; Z79.899 Other long term (current) drug therapy; Z79.4 Long term (current) use of insulin
CPT/HCPCS: 31500; 36415; 36600; 70450; 71045; 80048; 80053; 80305; 81001; 82009; 82140; 82803; 82948; 83605; 83735; 84100; 84443; 84484; 85025; 85610; 87040; 87070; 87081; 87086; 87205; 89220; 93005; 94002; 94003; 94640; 94660; 96365; 96366; 96367; 96368; 97110; 97112; 97116; 97530; 99291; C1758; C9113; G0480; G0482; J0696; J1644; J1815; J1953; J2060; J2543; J2704; J2920; J3370; J3490; J7030; J7060; J7613; P9046; Q0092

== ENCOUNTER 2019-05-24 11:07 | Inpatient (IN) | payer OTHER ==
[~2019-05-24] VITALS: Ht 152.4 cm; Wt 63.5 kg
[2019-05-24 11:10] VITALS: BP 109/48
[2019-05-24] MEDS ORDERED: NACL 0.9% 2,000 ML IV SCH (11:19)
[2019-05-24] MEDS ORDERED: LACTULOSE 20 GM/30 ML UDC PO ONE (11:25)
[2019-05-24] MEDS ORDERED: INSULIN REGULAR, HUMAN 100 UNIT/ML VIAL SUBQ ONE (11:25)
[2019-05-24] MEDS ORDERED: LACTULOSE 20 GM/30 ML UDC NG ONE (11:30)
[2019-05-24 11:56] LABS: PROTHROMBIN TIME 13.1 secs (10.8-13.4)
[2019-05-24 11:57] LABS: ALBUMIN 2.9 g/dL (3.4-5.0); ANION GAP 19.6 (8-16); CARBON DIOXIDE 18.9 mmol/L (21-32); CREATININE 2.5 mg/dL (0.6-1.3); POTASSIUM 5.5 mmol/L (3.5-5.1); TOTAL BILIRUBIN 4.2 mg/dL (0.0-1.0)
[2019-05-24] MEDS ORDERED: SPIR25TA PO (13:40)
[2019-05-24] MEDS ORDERED: METO-485 PO (13:40)
[2019-05-24 13:48] LABS: BASOPHILS % (AUTO) 0.3 % (0.0-2.0); EOSINOPHILS # (AUTO) 0.2 K/uL (0-0.4); EOSINOPHILS % (AUTO) 1.7 % (0.0-4.0); HEMATOCRIT 29.3 % (36-48); HEMOGLOBIN 9.9 g/dL (12.0-16.0); LYMPHOCYTES # (AUTO) 0.7 K/uL (2.5-16.5); MEAN CORPUSCULAR HEMOGLOBIN 35 pg (27-31); MEAN CORPUSCULAR HGB CONC 34 g/dL (33-37); MEAN CORPUSCULAR VOLUME 104.2 fL (80-94); MONOCYTES # (AUTO) 1.2 K/uL (0.8-1.0); MONOCYTES % (AUTO) 11.3 % (1.7-9.3); NEUTROPHILS # (AUTO) 8.2 K/uL (1.8-7.7); NEUTROPHILS % (AUTO) 79.7 % (42.2-75.2); PLATELET COUNT (AUTO) 115 K/uL (140-450); RED BLOOD CELL COUNT(AUTO) 2.81 MIL/uL (4.20-5.40); RED CELL DISTRIBUTION WIDTH 16.6 % (11.6-13.7); WHITE BLOOD COUNT (AUTO) 10.3 K/uL (4.8-10.8)
[2019-05-24] MEDS ORDERED: SODIUM POLYSTYRENE 15 GM/60 ML UDBTL NG ONE (13:50)
[2019-05-24 14:22] LABS: APPEARANCE,URINE SL CLOUDY (CLEAR); BILIRUBIN,URINE NEGATIVE (NEGATIVE); BLOOD, URINE NEGATIVE (NEGATIVE); COLOR,URINE YELLOW (YELLOW); LEUKOCYTE ESTERASE ,URINE NEGATIVE (NEGATIVE); NITRITE, URINE NEGATIVE (NEGATIVE); PH,URINE 5.5 (5.0-9.0); UGLUCOSE 1+ (NEGATIVE)
[2019-05-24 14:23] LABS: BARBITURATE, URINE NEG. ng/ml (NEG <=200); BENZODIAZEPINE, URINE NEG. ng/mL (NEG <=200); CANNABINOID, URINE POS. ng/mL (NEG <=50); COCAINE, URINE NEG. ng/mL (NEG <=300); OPIATE, URINE NEG. ng/mL (NEG <=2000); PHENCYCLIDINE SCREEN,URINE NEG. ng/mL (NEG <=25)
[2019-05-24] MEDS ORDERED: ALBUTEROL 0.083% 2.5 MG/3 ML NEBU INH PRN (15:30)
[2019-05-24] MEDS ORDERED: METOCLOPRAMIDE 10 MG/2 ML INJ VIAL IVP PRN (15:30)
[2019-05-24] MEDS ORDERED: DEXTROSE 50% 50 ML SYR IVP PRN (15:30)
[2019-05-24] MEDS ORDERED: HYDROcodone/APAP 5/325 MG 1 TAB TAB PO PRN (15:30)
[2019-05-24] MEDS ORDERED: LORazepam 2 MG/ML VIAL IVP PRN (15:30)
[2019-05-24] MEDS ORDERED: ACETAMINOPHEN 325 MG TAB PO PRN (15:30)
[2019-05-24] MEDS ORDERED: MORPHINE SULFATE 4 MG/ML SYR IVP PRN (15:30)
[2019-05-24] MEDS ORDERED: NACL 0.9% 1,000 ML IV ONE (16:10)
[2019-05-24 17:00] VITALS: BP 117/69
[2019-05-24] MEDS: FUROSEMIDE 40 MG TAB PO SCH (17:00)
[2019-05-24] MEDS: DEXT 5% /NACL 0.9% 1,000 ML IV SCH (18:00)
[2019-05-24] MEDS: BLOOD GLUCOSE MONITORING 1 DEV DEV FS SCH ×2 (18:00→21:00)
[2019-05-24] MEDS: INSULIN LISPRO SLIDING SCALE 100 UNITS/ML VIAL SUBQ PRN (19:32)
[2019-05-24 20:00] VITALS: BP 139/62
[2019-05-25] MEDS: LACTULOSE 20 GM/30 ML UDC PO SCH ×4 (03:06→21:35)
[2019-05-25] MEDS: DEXT 5% /NACL 0.9% 1,000 ML IV SCH ×3 (04:14→22:39)
[2019-05-25 06:27] LABS: BASOPHILS % (AUTO) 0.1 % (0.0-2.0); EOSINOPHILS % (AUTO) 0.3 % (0.0-4.0); HEMATOCRIT 24.4 % (36-48); HEMOGLOBIN 8.4 g/dL (12.0-16.0); LYMPHOCYTES # (AUTO) 0.6 K/uL (2.5-16.5); LYMPHOCYTES % (AUTO) 8.6 % (20.5-51.1); MEAN CORPUSCULAR HEMOGLOBIN 35 pg (27-31); MEAN CORPUSCULAR HGB CONC 35 g/dL (33-37); MEAN CORPUSCULAR VOLUME 102.4 fL (80-94); MONOCYTES # (AUTO) 0.3 K/uL (0.8-1.0); MONOCYTES % (AUTO) 4.1 % (1.7-9.3); NEUTROPHILS # (AUTO) 6.2 K/uL (1.8-7.7); NEUTROPHILS % (AUTO) 86.9 % (42.2-75.2); PLATELET COUNT (AUTO) 81 K/uL (140-450); RED BLOOD CELL COUNT(AUTO) 2.38 MIL/uL (4.20-5.40); WHITE BLOOD COUNT (AUTO) 7.1 K/uL (4.8-10.8)
[2019-05-25] MEDS: PANTOPRAZOLE 40 MG TABEC PO SCH (06:30)
[2019-05-25 06:42] LABS: CREATININE 2.1 mg/dL (0.6-1.3)
[2019-05-25 06:43] LABS: ALBUMIN 2.8 g/dL (3.4-5.0); TOTAL BILIRUBIN 4.8 mg/dL (0.0-1.0)
[2019-05-25 06:49] LABS: POTASSIUM 3.9 mmol/L (3.5-5.1)
[2019-05-25 06:52] LABS: MAGNESIUM 1.6 mg/dL (1.8-2.4); PHOSPHORUS 3.1 mg/dL (2.5-4.9)
[2019-05-25 06:55] LABS: ANION GAP 18.6 (8-16); CARBON DIOXIDE 16.3 mmol/L (21-32)
[2019-05-25] MEDS: BLOOD GLUCOSE MONITORING 1 DEV DEV FS SCH ×4 (07:49→21:00)
[2019-05-25 08:00] VITALS: BP 112/56
[2019-05-25] MEDS ORDERED: SPIRONOLACTONE 25 MG TAB PO SCH (09:00)
[2019-05-25] MEDS: FUROSEMIDE 40 MG TAB PO SCH ×2 (09:21→17:00)
[2019-05-25 12:00] VITALS: BP 91/52
[2019-05-25] MEDS ORDERED: MAG SULF 2000 MG/WATER PREMIX 50 ML IV SCH (12:00)
[2019-05-25] MEDS: INSULIN LISPRO SLIDING SCALE 100 UNITS/ML VIAL SUBQ PRN ×3 (12:19→22:34)
[2019-05-25 16:00] VITALS: BP 98/47
[2019-05-25 20:00] VITALS: BP 102/45
[2019-05-26] VITALS: BP 105/47
[2019-05-26 04:00] VITALS: BP 107/49
[2019-05-26] MEDS: LACTULOSE 20 GM/30 ML UDC PO SCH ×3 (06:00→21:03)
[2019-05-26] MEDS: PANTOPRAZOLE 40 MG TABEC PO SCH (06:03)
[2019-05-26] MEDS: BLOOD GLUCOSE MONITORING 1 DEV DEV FS SCH ×4 (06:03→21:03)
[2019-05-26] MEDS: INSULIN LISPRO SLIDING SCALE 100 UNITS/ML VIAL SUBQ PRN ×4 (06:13→20:54)
[2019-05-26 06:40] LABS: ALBUMIN 2.5 g/dL (3.4-5.0); ANION GAP 16.6 (8-16); CARBON DIOXIDE 17.5 mmol/L (21-32); POTASSIUM 3.1 mmol/L (3.5-5.1)
[2019-05-26 06:52] LABS: BASOPHILS % (AUTO) 0.2 % (0.0-2.0); EOSINOPHILS # (AUTO) 0.1 K/uL (0-0.4); EOSINOPHILS % (AUTO) 0.8 % (0.0-4.0); HEMOGLOBIN 8.4 g/dL (12.0-16.0); LYMPHOCYTES # (AUTO) 0.5 K/uL (2.5-16.5); LYMPHOCYTES % (AUTO) 7.6 % (20.5-51.1); MEAN CORPUSCULAR HEMOGLOBIN 36 pg (27-31); MEAN CORPUSCULAR HGB CONC 34 g/dL (33-37); MEAN CORPUSCULAR VOLUME 105.9 fL (80-94); MONOCYTES # (AUTO) 0.6 K/uL (0.8-1.0); MONOCYTES % (AUTO) 10.1 % (1.7-9.3); NEUTROPHILS # (AUTO) 5.2 K/uL (1.8-7.7); NEUTROPHILS % (AUTO) 81.3 % (42.2-75.2); PLATELET COUNT (AUTO) 68 K/uL (140-450); RED BLOOD CELL COUNT(AUTO) 2.36 MIL/uL (4.20-5.40); RED CELL DISTRIBUTION WIDTH 17.3 % (11.6-13.7); WHITE BLOOD COUNT (AUTO) 6.4 K/uL (4.8-10.8)
[2019-05-26 07:00] LABS: PHOSPHORUS 3.5 mg/dL (2.5-4.9)
[2019-05-26 08:00] VITALS: BP 116/48
[2019-05-26] MEDS: FUROSEMIDE 40 MG TAB PO SCH ×2 (09:00→16:36)
[2019-05-26 12:00] VITALS: BP 111/51
[2019-05-26] MEDS ORDERED: KCL 20 MEQ/WATER INJ PREMIX 200 ML IV ONE (14:00)
[2019-05-26 16:00] VITALS: BP 104/50
[2019-05-26] MEDS: DEXT 5% /NACL 0.9% 1,000 ML IV SCH (17:30)
[2019-05-26 20:00] VITALS: BP 119/59
[2019-05-27] VITALS: BP 116/60
[2019-05-27 04:00] VITALS: BP 122/54
[2019-05-27] MEDS: LACTULOSE 20 GM/30 ML UDC PO SCH ×3 (04:35→20:44)
[2019-05-27] MEDS: DEXT 5% /NACL 0.9% 1,000 ML IV SCH ×3 (05:58→22:34)
[2019-05-27] MEDS: INSULIN LISPRO SLIDING SCALE 100 UNITS/ML VIAL SUBQ PRN ×4 (06:12→20:48)
[2019-05-27] MEDS: PANTOPRAZOLE 40 MG TABEC PO SCH (06:15)
[2019-05-27] MEDS: BLOOD GLUCOSE MONITORING 1 DEV DEV FS SCH ×4 (06:15→20:44)
[2019-05-27 07:01] LABS: BASOPHILS % (AUTO) 0.2 % (0.0-2.0); EOSINOPHILS # (AUTO) 0.2 K/uL (0-0.4); EOSINOPHILS % (AUTO) 4.1 % (0.0-4.0); HEMATOCRIT 25.1 % (36-48); HEMOGLOBIN 8.3 g/dL (12.0-16.0); LYMPHOCYTES # (AUTO) 0.7 K/uL (2.5-16.5); MEAN CORPUSCULAR HEMOGLOBIN 35 pg (27-31); MEAN CORPUSCULAR HGB CONC 33 g/dL (33-37); MEAN CORPUSCULAR VOLUME 105.4 fL (80-94); MONOCYTES # (AUTO) 0.6 K/uL (0.8-1.0); NEUTROPHILS # (AUTO) 4.1 K/uL (1.8-7.7); NEUTROPHILS % (AUTO) 72.7 % (42.2-75.2); PLATELET COUNT (AUTO) 66 K/uL (140-450); RED BLOOD CELL COUNT(AUTO) 2.38 MIL/uL (4.20-5.40); WHITE BLOOD COUNT (AUTO) 5.7 K/uL (4.8-10.8)
[2019-05-27 07:18] LABS: MAGNESIUM 1.9 mg/dL (1.8-2.4); PHOSPHORUS 3.3 mg/dL (2.5-4.9)
[2019-05-27 07:29] LABS: ALBUMIN 2.3 g/dL (3.4-5.0); ANION GAP 15.9 (8-16); CARBON DIOXIDE 17.7 mmol/L (21-32); POTASSIUM 3.6 mmol/L (3.5-5.1); TOTAL BILIRUBIN 3.7 mg/dL (0.0-1.0)
[2019-05-27 08:00] VITALS: BP 118/58
[2019-05-27] MEDS: FUROSEMIDE 40 MG TAB PO SCH ×2 (08:24→17:10)
[2019-05-27 12:00] VITALS: BP 121/54
[2019-05-27 16:00] VITALS: BP 107/59
[2019-05-27 19:52] VITALS: BP 118/66
[2019-05-28 00:11] VITALS: BP 116/59
[2019-05-28 04:25] VITALS: BP 113/65
[2019-05-28] MEDS: BLOOD GLUCOSE MONITORING 1 DEV DEV FS SCH ×3 (05:09→17:29)
[2019-05-28] MEDS: INSULIN LISPRO SLIDING SCALE 100 UNITS/ML VIAL SUBQ PRN ×3 (05:09→17:34)
[2019-05-28] MEDS: LACTULOSE 20 GM/30 ML UDC PO SCH ×2 (05:13→12:30)
[2019-05-28] MEDS: PANTOPRAZOLE 40 MG TABEC PO SCH (05:13)
[2019-05-28 07:40] LABS: HEMATOCRIT 26.3 % (36-48); HEMOGLOBIN 8.7 g/dL (12.0-16.0); MEAN CORPUSCULAR HEMOGLOBIN 35 pg (27-31); MEAN CORPUSCULAR HGB CONC 33 g/dL (33-37); MEAN CORPUSCULAR VOLUME 105.6 fL (80-94); PLATELET COUNT (AUTO) 75 K/uL (140-450); RED BLOOD CELL COUNT(AUTO) 2.49 MIL/uL (4.20-5.40); RED CELL DISTRIBUTION WIDTH 16.4 % (11.6-13.7); WHITE BLOOD COUNT (AUTO) 8.2 K/uL (4.8-10.8)
[2019-05-28 08:00] VITALS: BP 110/62
[2019-05-28 08:16] LABS: MAGNESIUM 1.7 mg/dL (1.8-2.4); PHOSPHORUS 3.4 mg/dL (2.5-4.9)
[2019-05-28 09:19] LABS: ALBUMIN 2.4 g/dL (3.4-5.0); ANION GAP 17.6 (8-16); CARBON DIOXIDE 16.6 mmol/L (21-32); CREATININE 2.1 mg/dL (0.6-1.3); POTASSIUM 4.2 mmol/L (3.5-5.1); TOTAL BILIRUBIN 3.3 mg/dL (0.0-1.0)
[2019-05-28 09:23] LABS: EOSINOPHILS % (MANUAL) 6 % (0-4); LYMPHOCYTES % (MANUAL) 8 % (20-46); MONOCYTES % (MANUAL) 10 % (5-12)
[2019-05-28] MEDS: FUROSEMIDE 40 MG TAB PO SCH ×2 (09:34→17:26)
[2019-05-28 10:28] LABS: PROTHROMBIN TIME 14.2 secs (10.8-13.4)
[2019-05-28 12:00] VITALS: BP 117/57
[2019-05-28] MEDS: DEXT 5% /NACL 0.9% 1,000 ML IV SCH (12:28)
== END 2019-05-28 17:45 | disposition home health service (06) | DRG 280 ==
LOC: MED 11:07 → UNDOADMIN 15:30 → MTU 15:30
PROVIDERS: ADMIT Internal Medicine Pulmonary Disease; ATTEND Internal Medicine Pulmonary Disease
PROC: 0W9G3ZZ Drainage of Peritoneal Cavity, Percutaneous Approach (ICD-10-PCS; principal; 2019-05-28)
DX: K70.31 Alcoholic cirrhosis of liver with ascites (principal); K70.9 Alcoholic liver disease, unspecified; N17.0 Acute kidney failure with tubular necrosis; G92 Toxic encephalopathy; E43 Unspecified severe protein-calorie malnutrition; K72.90 Hepatic failure, unspecified without coma; D69.59 Other secondary thrombocytopenia; R13.10 Dysphagia, unspecified; E87.1 Hypo-osmolality and hyponatremia; E44.1 Mild protein-calorie malnutrition; J45.909 Unspecified asthma, uncomplicated; E11.65 Type 2 diabetes mellitus with hyperglycemia; N18.9 Chronic kidney disease, unspecified; D64.9 Anemia, unspecified; F10.10 Alcohol abuse, uncomplicated; F12.10 Cannabis abuse, uncomplicated; Y90.0 Blood alcohol level of less than 20 mg/100 ml; F15.10 Other stimulant abuse, uncomplicated; Z68.27 Body mass index [BMI] 27.0-27.9, adult; Z88.8 Allergy status to other drugs, medicaments and biological substances; Z79.899 Other long term (current) drug therapy
CPT/HCPCS: 36415; 43753; 49083; 70450; 71045; 76700; 80053; 80305; 81003; 82140; 82550; 82948; 83605; 83690; 83735; 83880; 84100; 84484; 85025; 85610; 85730; 87040; 87081; 87086; 92610; 93005; 96360; 96361; 96372; 97116; 97161-GP; 97530; 99291; 99292; G0482; J1815; J2001; J2060; J2270; J2765; J3475; J3480; J7042; Q0092

== ENCOUNTER 2019-05-31 14:47 | Emergency (ER) | payer OTHER ==
[~2019-05-31] VITALS: Ht 157.5 cm; Wt 60.3 kg
[~2019-05-31 14:47] MED LIST changes: +METO-485 PO; -METO5TAB4 PO; +SPIR25TA PO; -SPIR50TA PO
[2019-05-31 14:51] VITALS: BP 125/62
--- NOTE | 2019-05-31 15:04 | NUR ---
PT WHEELCHAIR ASSISTED TO BED 8
--- NOTE | 2019-05-31 15:40 | NUR ---
PT BIB DAUGHTER IN LAW TO THE ED WITH THE CHIEF C/O LEAKING RIGHT SIDE OF THE ABDOMEN, AND OPEN SKIN ON RIGHT ARM. PER PT AND FAMILY, PARACENTHESIS WAS DONE IN HERE [facility] ON FRIDAY, SITE LEAKING SINCE THEN. DESTENDED ABDOMEN NOTED. DENIES PAIN. ANASARCA NOTED ON THIGH AND WAIST. PITTING EDEMA ON BOTH LOWER EXTREMITIES. VSS. NO ACUTE RESPIRATORY DISTRESS NOTED. EVALUATED BY ER MD. WILL CONTINUE TO MONITOR.
[2019-05-31] MEDS ORDERED: BACITRACIN OINT 500 UNITS/GM PKT TP ONE ×2 (15:58→16:50)
--- NOTE | 2019-05-31 15:58 | NUR ---
Lab at the bedside.
--- NOTE | 2019-05-31 16:00 | NUR ---
PT IS SATURATING 100% IN ROOM AIR. NO ACUTE RESPIRATORY DISTRESS OR DIFFICULTY BREATHING NOTED AT THIS TIME.
[2019-05-31 16:37] LABS: EOSINOPHILS # (AUTO) 0.1 K/uL (0-0.4); MEAN CORPUSCULAR VOLUME 104.2 fL (80-94)
--- NOTE | 2019-05-31 16:42 | NUR ---
PT MADE AWARE OF REQUIRING UA SAMPLE. SAID WILL GIVE URINE SAMPLE.
--- NOTE | 2019-05-31 16:45 | NUR ---
BIBI GOMES AT THE BEDSIDE.
--- NOTE | 2019-05-31 17:00 | NUR ---
DERMABOND PLACED ON RLQ PARACENTESIS SITES THAT WERE LEAKING. WAS CLEANSED WITH NS AND GAUZE.
[2019-05-31 17:01] LABS: PROTHROMBIN TIME 13.8 secs (10.8-13.4)
--- NOTE | 2019-05-31 17:11 | NUR ---
MEDICINE APPLIED AND COVERED WITH DRESSSING PER ORDER.
[2019-05-31 17:12] LABS: BASOPHILS % (AUTO) 0.2 % (0.0-2.0); EOSINOPHILS % (AUTO) 1.9 % (0.0-4.0); HEMATOCRIT 30.1 % (36-48); LYMPHOCYTES # (AUTO) 0.4 K/uL (2.5-16.5); LYMPHOCYTES % (AUTO) 6.3 % (20.5-51.1); MEAN CORPUSCULAR HEMOGLOBIN 35 pg (27-31); MEAN CORPUSCULAR HGB CONC 33 g/dL (33-37); MONOCYTES # (AUTO) 0.8 K/uL (0.8-1.0); MONOCYTES % (AUTO) 11.2 % (1.7-9.3); NEUTROPHILS # (AUTO) 5.6 K/uL (1.8-7.7); NEUTROPHILS % (AUTO) 80.4 % (42.2-75.2); PLATELET COUNT (AUTO) 75 K/uL (140-450); RED BLOOD CELL COUNT(AUTO) 2.89 MIL/uL (4.20-5.40); RED CELL DISTRIBUTION WIDTH 17.1 % (11.6-13.7)
--- NOTE | 2019-05-31 17:13 | NUR ---
APPLIED DRESSING TO LOWER RIGHT ABD WITHOUT ANY ISSUES
[2019-05-31 17:38] LABS: ANION GAP 20.4 (8-16); CARBON DIOXIDE 14.5 mmol/L (21-32); CREATININE 2.2 mg/dL (0.6-1.3); POTASSIUM 3.9 mmol/L (3.5-5.1)
[2019-05-31 17:39] LABS: ALBUMIN 2.2 g/dL (3.4-5.0); TOTAL BILIRUBIN 3.1 mg/dL (0.0-1.0)
[2019-05-31] MEDS ORDERED: INSULIN REGULAR, HUMAN 100 UNIT/ML VIAL SUBQ ONE (17:45)
[2019-05-31] MEDS ORDERED: POTASSIUM CHLORIDE 10 MEQ TABER PO ONE (17:45)
--- NOTE | 2019-05-31 18:23 | NUR ---
NO RESPIRATORY DISTRESS NOTED. RESTING IN BED COMFORTABLY. DENIES PAIN AT THIS TIME. ON BEDSIDE MONITORING.
[2019-05-31 18:54] VITALS: BP 119/61
--- NOTE | 2019-05-31 18:54 | NUR ---
Patient discharged with v/s stable. Pt encouraged to elevate extremities. Pt given lab results Written and verbal after care instructions given and explained. Patient verbalized understanding. Ambulatory with steady gait. All questions addressed prior to discharge. Advised to follow up with PMD in 2-3 days
[2019-05-31 18:58] LABS: APPEARANCE,URINE CLOUDY (CLEAR); BILIRUBIN,URINE NEGATIVE (NEGATIVE); BLOOD, URINE NEGATIVE (NEGATIVE); COLOR,URINE YELLOW (YELLOW); LEUKOCYTE ESTERASE ,URINE 1+ (NEGATIVE); NITRITE, URINE NEGATIVE (NEGATIVE); UGLUCOSE NEGATIVE (NEGATIVE)
[2019-05-31 19:28] LABS: RBC,URINE NONE SEEN /HPF (0-5); WBC,URINE 80-100 /HPF (0-5)
[2019-05-31 19:29] LABS: YEAST,URINE Moderate /HPF (None Seen)
--- NOTE | 2019-06-03 06:24 | NUR ---
CALLED PT AT HOME, SPOKE TO SON. PT WAS ADMITTED TO [facility]. CALLED AND SPOKE TO JOSÉ MANUEL TOBAR AT [facility]. FAXED JOSÉ MANUEL TOBAR, THE SUSEPTABILITY REPORT FROM OUR LAB.
== END 2019-05-31 18:54 | disposition home or self-care (01) ==
LOC: MED 14:47
DX: K91.89 Other postprocedural complications and disorders of digestive system (principal); E11.65 Type 2 diabetes mellitus with hyperglycemia; E87.1 Hypo-osmolality and hyponatremia; D53.9 Nutritional anemia, unspecified; R60.0 Localized edema; K74.60 Unspecified cirrhosis of liver; N39.0 Urinary tract infection, site not specified; E72.20 Disorder of urea cycle metabolism, unspecified; J45.909 Unspecified asthma, uncomplicated; F15.90 Other stimulant use, unspecified, uncomplicated; F12.90 Cannabis use, unspecified, uncomplicated; Z79.4 Long term (current) use of insulin; Z79.899 Other long term (current) drug therapy; Z88.1 Allergy status to other antibiotic agents; Z88.8 Allergy status to other drugs, medicaments and biological substances
CPT/HCPCS: 36415; 71045; 80053; 81001; 82140; 83605; 85025; 85610; 85730; 87040; 87086; 87186; 96372; 99284; J1815; Q0092